=== PATIENT | male | born 1950 | race Caucasian/White ===

== ENCOUNTER 2019-04-03 08:09 | Outpatient (CLI) | payer OTHER ==
--- NOTE | 2019-04-03 08:26 | RAD ---
Exam: XR Knee Lt 4 View STANDARD HISTORY: Left knee pain. COMPARISON: None FINDINGS: Vascular calcifications are seen posterior to the knee. No acute fracture, dislocation, or other acute osseous abnormality is identified. IMPRESSION: No acute osseous abnormality is identified. Prominent vascular calcifications.
== END 2019-04-03 08:10 | disposition home or self-care (01) ==
LOC: RAD-FRANK 08:09
PROVIDERS: ATTEND Internal Medicine
DX: M25.562 Pain in left knee (principal); M25.862 Other specified joint disorders, left knee

== ENCOUNTER 2019-04-17 09:53 | Outpatient (CLI) | payer OTHER ==
--- NOTE | 2019-04-17 12:44 | MRI ---
MR OF THE LEFT KNEE WITHOUT CONTRAST INDICATION: Medial meniscal tear of the left knee TECHNIQUE: Axial and coronal PD fat sat, sagittal T2 fat sat, sagittal PD turbo spin echo and T1 rachael nal images were obtained of the left knee. COMPARISON: Left knee radiograph dated April 03, 2019 FINDINGS: Joint effusion: None. Semimembranosus-medial gastrocnemius popliteal cyst: Small sized semimembranosus-medial gastrocnemius Madison's cyst. There is fluid overlying the superficial fascia of the medial gastrocnemius. Ligaments: The ACL, PCL, MCL and LCLC are intact. Extensor mechanism: There is mild tendinosis of the proximal patellar tendon. Menisci: There is a horizontally oriented oblique tear involving the posterior horn and body of media l meniscus with a meniscal flap, extending from the inferior aspect of the medial meniscal body, being displaced into the inferior medial meniscal gutter on image 18 of series 8 measuring 5 mm in it s greatest craniocaudad dimension. There is partial extrusion of the medial meniscus. Small horizontally oriented tear is seen involving the body of the lateral meniscus. Articular cartilage: There are areas of focal full-thickness thinning involving the inferior aspect o f the medial patellar facet. One of the largest defect seen involving the lower medial patellar facet measuring 7.6 mm. There is a partial-thickness articular cartilage fissure involving the latera l patellar facet measuring 1.7 cm. There is moderate to severe diffuse chondral thinning involving the medial femorotibial joint compartment. There are small marginal osteophytes affecting all major c ompartments of the left knee. Osseous structures: Normal marrow signal. Popliteus and IT band: Normal. IMPRESSION: 1. Mild osteoarthrosis of the left knee. 2. Medial and lateral meniscal tears. 3. Partially ruptured Madison's cyst 4. Mild proximal patellar tendinosis.
== END 2019-04-17 09:54 | disposition home or self-care (01) ==
LOC: BICMRI 09:53
PROVIDERS: ATTEND Orthopaedic Surgery
DX: S83.242A Other tear of medial meniscus, current injury, left knee, initial encounter (principal); S83.282A Other tear of lateral meniscus, current injury, left knee, initial encounter; M17.12 Unilateral primary osteoarthritis, left knee; M66.0 Rupture of popliteal cyst; M67.864 Other specified disorders of tendon, left knee

== ENCOUNTER 2019-05-05 11:03 | Outpatient (CLI) | payer OTHER ==
[2019-05-05 12:39] LABS: #Eosinphils 0.2 thou/uL (0.0-0.7); #Lymphocytes 3.1 thou/uL (1.20-3.40); #Monocytes 0.5 thou/uL (0.11-0.59); #Neutrophils 3.1 thou/uL (1.40-6.50); %Basophils 0.7 % (0.0-1.0); %Eosinophils 2.6 % (0.0-10.0); %Lymphocytes 45.1 % (21.0-51.0); %Monocytes 7.1 % (0.0-10.0); %Neutrophils 44.5 % (42.0-75.0); Hemoglobin 14.5 g/dL (14.0-18.0); Mean Corpuscular HGB CONC 32.8 g/dL (32.0-36.0); Mean Corpuscular Hemoglobin 30.8 pg (27.0-31.0); Mean Corpuscular Volume 93.9 fL (78.0-98.0); Mean Platelet Volume 10.8 fL (7.4-10.4); Platelet Count 191 thou/uL (130-400); RBC Distribution Width 13.3 % (11.5-14.5); White Blood Cell (WBC) Count 6.9 thou/uL (4.8-10.8)
[2019-05-05 13:10] LABS: Anion Gap 14 mmol/L (10-20); BUN (Urea Nitrogen) 16 mg/dL (8.4-25.7); Calc. Creatinine Clearance 0 mL/min (70-130); Calcium 10.1 mg/dL (7.8-10.44); Carbon Dioxide 25 mmol/L (23-31); Chloride 105 mmol/L (98-107); Estimated GFR-MDRD 53; Glucose 158 mg/dL (80-115); Potassium 5.3 mmol/L (3.5-5.1); Sodium 139 mmol/L (136-145)
== END 2019-05-05 11:04 | disposition home or self-care (01) ==
LOC: LABBT 11:03
PROVIDERS: ATTEND Orthopaedic Surgery
DX: Z01.818 Encounter for other preprocedural examination (principal); S83.282A Other tear of lateral meniscus, current injury, left knee, initial encounter; S83.242A Other tear of medial meniscus, current injury, left knee, initial encounter
CPT/HCPCS: 80048; 85025; 93005; 93010

== ENCOUNTER 2019-05-09 07:56 | Day surgery (SDC) | payer OTHER ==
[2019-05-05 11:30] VITALS: BMI 29.8
[2019-05-09] MEDS ORDERED: PROPOFOL 20 ML ONE (10:10)
[2019-05-09] MEDS ORDERED: Fentanyl 100 MCG/2 ML VIAL ONE (10:57)
[2019-05-09] MEDS ORDERED: Lidocaine 2% w/Epinephrine 1:200K 20 ML VIAL ONE (11:23)
[2019-05-09] MEDS ORDERED: PROPOFOL 200 MG/20 ML VIAL ONE (11:23)
[2019-05-09] MEDS ORDERED: Dexamethasone 20 MG/5 ML VIAL ONE (11:23)
[2019-05-09] MEDS ORDERED: ePHEDrine/0.9% NaCl/PF SYRINGE 50 mg/10 ml ONE (11:23)
[2019-05-09] MEDS ORDERED: Bupivacaine HCl 0.5%/Epinephrine 1:200,000/PF 30 ml Vial ONE (11:23)
[2019-05-09] MEDS ORDERED: Ondansetron PF 4 MG/2 ML Vial ONE (11:23)
[2019-05-09] MEDS ORDERED: PHENYLEPHRINE-NS 100 MCG/ML 10 ML SYRINGE ONE ×2 (11:23)
[2019-05-09] MEDS ORDERED: Lidocaine 1% PF 5 ML VIAL ONE (11:23)
--- NOTE | 2019-05-09 14:10 | OP ---
DATE OF PROCEDURE: 05/09/2019 PREOPERATIVE DIAGNOSIS: Medial and lateral meniscus tear, left knee. POSTOPERATIVE DIAGNOSIS: Medial meniscus tear, left knee, intact lateral compartment. ANESTHESIA: General. ESTIMATED BLOOD LOSS: Minimal. SPECIMENS: None. DRAINS: None. COMPLICATIONS: None. FINDINGS OF SURGERY: Grade 3 chondromalacia of medial femoral condyle, tearing of almost the entire medial meniscus, posterior half, intact lateral compartment, intact patellofemoral joint. The scope was placed in the lateral portal, probe was placed in medial portal. I debrided the medial compartment with the shaver and then used a basket forceps to remove most of the posterior horn of the medial meniscus all the way up to the medial collateral ligament, which was visible at the time of the meniscectomy. We did have some areas of exposed bone in the medial femoral condyle, debrided these just gently with a shaver. The knee was irrigated and sterile dressings applied. Job ID: [id number]
== END 2019-05-09 15:45 | disposition home or self-care (01) ==
LOC: SDC 07:56
PROVIDERS: ATTEND Orthopaedic Surgery
PROC: 0SBD4ZZ Excision of Left Knee Joint, Percutaneous Endoscopic Approach (ICD-10-PCS; principal; 2019-05-09)
DX: S83.242A Other tear of medial meniscus, current injury, left knee, initial encounter (principal); M94.262 Chondromalacia, left knee; F17.200 Nicotine dependence, unspecified, uncomplicated; I10 Essential (primary) hypertension; E11.9 Type 2 diabetes mellitus without complications; E78.00 Pure hypercholesterolemia, unspecified; M19.90 Unspecified osteoarthritis, unspecified site; Z79.4 Long term (current) use of insulin; Z79.82 Long term (current) use of aspirin; Z79.899 Other long term (current) drug therapy; Z88.5 Allergy status to narcotic agent
CPT/HCPCS: 36416; J0131; J0670; J0690; J1100; J2001; J2405; J2704; J3010

== ENCOUNTER 2019-09-19 11:02 | Emergency (ER) | payer OTHER ==
[~2019-09-19 11:02] MED LIST: Iopamidol-370 76% 500 ML 1 ML ONE
[2019-09-19 12:14] LABS: #Basophils 0.1 thou/uL (0.0-0.2); #Eosinphils 0.1 thou/uL (0.0-0.7); #Monocytes 0.4 thou/uL (0.11-0.59); #Neutrophils 4.1 thou/uL (1.40-6.50); %Basophils 1.3 % (0.0-1.0); %Eosinophils 1.4 % (0.0-10.0); %Lymphocytes 38.5 % (21.0-51.0); %Monocytes 5.5 % (0.0-10.0); %Neutrophils 53.3 % (42.0-75.0); Mean Corpuscular HGB CONC 33.5 g/dL (32.0-36.0); Mean Corpuscular Hemoglobin 31.6 pg (27.0-31.0); Mean Corpuscular Volume 94.1 fL (78.0-98.0); Mean Platelet Volume 11.5 fL (7.4-10.4); Platelet Count 176 thou/uL (130-400); RBC Distribution Width 12.5 % (11.5-14.5); Red Blood Cell (RBC) Count 5.08 mill/uL (4.70-6.10); White Blood Cell (WBC) Count 7.8 thou/uL (4.8-10.8)
[2019-09-19 12:34] LABS: ALT (SGPT) 31 U/L (8-55); AST (SGOT) 24 U/L (5-34); Albumin 4.6 g/dL (3.4-4.8); Alkaline Phosphatase 63 U/L (40-110); Anion Gap 17 mmol/L (10-20); BUN (Urea Nitrogen) 21 mg/dL (8.4-25.7); Bilirubin, Total 0.6 mg/dL (0.2-1.2); Calc. Creatinine Clearance 0 mL/min (70-130); Calcium 10.1 mg/dL (7.8-10.44); Carbon Dioxide 19 mmol/L (23-31); Chloride 106 mmol/L (98-107); Estimated GFR-MDRD 45; Globulin 2.8 g/dL (2.4-3.5); Glucose 265 mg/dL (80-115); Lipase 19 U/L (8-78); Potassium 4.4 mmol/L (3.5-5.1); Protein, Total 7.4 g/dL (5.8-8.1); Sodium 138 mmol/L (136-145)
[2019-09-19 12:43] LABS: Bilirubin Negative (Negative); Blood, Urine Negative (Negative); Clarity Clear (Clear); Glucose, Urine (Dipstick) Greater than 1000 mg/dL (Negative); Leukocyte Negative Leu/uL (Negative); Nitrite Negative (Negative); Protein, Urine (Dipstick) Negative (Neg-Trace); Urobilinogen Normal mg/dL (Less than 2)
--- NOTE | 2019-09-19 14:44 | CT ---
CT ABDOMEN AND PELVIS WITH IV CONTRAST: Date: 09/19/2019 HISTORY: Abdominal pain. Rectal pain. Rectal bleeding. FINDINGS: There are mild dependent changes in the lung bases. The liver demonstrates decreased attenuation comp ared to the spleen consistent with fatty infiltration. The spleen, pancreas, and adrenal glands are n ormal. Bilateral renal cysts are present. No free air, free fluid, or lymphadenopathy is seen in the abdomen or pelvis. There are vascular calc ifications without evidence of aneurysmal dilatation of the abdominal aorta. The small bowel loops ar e not abnormally dilated. There is colonic diverticulosis without evidence of diverticulitis. There a re degenerative changes in the spine. There is a small, fat-containing left inguinal hernia. IMPRESSION: 1. Fatty liver. 2. Bilateral renal cysts. 3. Colonic diverticulosis without diverticulitis. POS: MZA
== END 2019-09-19 14:53 | disposition home or self-care (01) ==
LOC: ERS 11:02
DX: K59.00 Constipation, unspecified (principal); K92.1 Melena
CPT/HCPCS: 36415; 74177; 80053; 81003; 82274; 83690; 85025; Q9967

== ENCOUNTER 2019-10-03 15:12 | Observation (INO) | payer MEDICARE ==
--- NOTE | 2019-10-03 15:58 | RAD ---
PORTABLE CHEST: 10/03/19 PROVIDED CLINICAL HISTORY: Intermittent chest pain. FINDINGS: comparison 09/11/11. The cardiac and mediastinal silhouette is within normal limits. No focal consolidation, pleural flui d or pneumothorax apparent. IMPRESSION: No evidence for an acute cardiopulmonary process. POS: CHRIS
[2019-10-03 16:04] LABS: #Basophils 0.1 thou/uL (0.0-0.2); #Eosinphils 0.1 thou/uL (0.0-0.7); #Lymphocytes 3.6 thou/uL (1.20-3.40); #Monocytes 0.5 thou/uL (0.11-0.59); #Neutrophils 4.7 thou/uL (1.40-6.50); %Basophils 1.1 % (0.0-1.0); %Eosinophils 1.6 % (0.0-10.0); %Lymphocytes 39.6 % (21.0-51.0); %Neutrophils 52.8 % (42.0-75.0); Hemoglobin 14.8 g/dL (14.0-18.0); Mean Corpuscular HGB CONC 31.8 g/dL (32.0-36.0); Mean Corpuscular Hemoglobin 30.9 pg (27.0-31.0); Mean Corpuscular Volume 97.1 fL (78.0-98.0); Mean Platelet Volume 10.1 fL (7.4-10.4); Platelet Count 206 thou/uL (130-400); RBC Distribution Width 12.6 % (11.5-14.5); Red Blood Cell (RBC) Count 4.81 mill/uL (4.70-6.10)
[2019-10-03 16:29] LABS: ALT (SGPT) 15 U/L (8-55); AST (SGOT) 16 U/L (5-34); Albumin 4.3 g/dL (3.4-4.8); Alkaline Phosphatase 50 U/L (40-110); Anion Gap 16 mmol/L (10-20); BUN (Urea Nitrogen) 12 mg/dL (8.4-25.7); Bilirubin, Total Less than 0.2 mg/dL (0.2-1.2); Calc. Creatinine Clearance 0 mL/min (70-130); Calcium 9.4 mg/dL (7.8-10.44); Carbon Dioxide 20 mmol/L (23-31); Chloride 111 mmol/L (98-107); Estimated GFR-MDRD 51; Globulin 2.2 g/dL (2.4-3.5); Glucose 130 mg/dL (80-115); Lipase 24 U/L (8-78); Potassium 4.6 mmol/L (3.5-5.1); Protein, Total 6.5 g/dL (5.8-8.1); Sodium 142 mmol/L (136-145)
[2019-10-03] MEDS ORDERED: Aspirin Chewable 81 MG TAB ONE (18:14)
[2019-10-03 19:29] LABS: Troponin I Less than 0.010 ng/mL (< 0.028)
[2019-10-03] MEDS ORDERED: HYDROcodone/Acetaminophen 7.5/325 mg Tablet PO PRN ×2 (19:32)
[2019-10-03] MEDS ORDERED: Dextrose 50% Abboject 50 ML SYRINGE SLOW IVP PRN (19:52)
[2019-10-03] MEDS ORDERED: HumaLOG 300 UNITS/3 ML VIAL SC PRN (19:52)
[2019-10-03] MEDS ORDERED: Dextrose 5% in Water 1,000 ML IV PRN (19:52)
[2019-10-03] MEDS ORDERED: Melatonin 3 MG TAB PO PRN (20:02)
--- NOTE | 2019-10-03 21:08 | HP ---
PRIMARY CARE PHYSICIAN: [facility] in [place]. He is a former Dr. Vaughan's patient. CHIEF COMPLAINT: Chest pain. HISTORY OF PRESENT ILLNESS: Mr. Romo is a 68-year-old male who reported to the emergency room today after he started having chest pain around lunch today, reports that it was substernal. Denies any radiation, but did say it made him nauseated. He had tingling down his left arm and a little shortness of breath. He does have a past medical history pertinent for diabetes, hypertension, hyperlipidemia, coronary artery disease post 1 stent in 2018 in [place]. He reports that he still takes Plavix every day for the stent. He reports that he is compliant with his medication and has had no changes of his heart medicine. Reports that his PCP, who he saw at [facility] after Dr. Vaughan left, put him on some new diabetes medication, Jardiance, but he had some side effects to it and he stopped taking it. He denies having similar symptoms in the past. He denies any fever, any worsening cough. He reports that he does have a kind of a chronic cough from smoking. In the emergency room, he had no EKG changes, first troponin was undetectable. Based on his history and his presentation, he will be admitted to the observation unit for further management and workup. REVIEW OF SYSTEMS: Reports chest pain. Reports cough. Reports shortness of breath. Denies any palpitations. Reports some nausea. Denies any abdominal pain. Reports constipation. Reports hemorrhoid pain. He denies any diarrhea. He denies any fever or any chills. All other systems are reviewed and are negative unless mentioned above or in the HPI. PAST MEDICAL HISTORY: Diabetes, hypertension, insomnia, hyperlipidemia, seasonal allergies, peripheral neuropathy. SURGICAL HISTORY: Had a stent, appendectomy, knee surgery, 2 inguinal hernia repairs. PSYCHIATRIC HISTORY: None. SOCIAL HISTORY: Denies any alcohol use. Denies drug use. Uses tobacco. Reports that he smokes a pack for the last 50 years. FAMILY HISTORY: Reports that his father from a stroke after AAA surgery. Mom, history of hypertension. KNOWN ALLERGIES: To Demerol. CURRENT MEDICATIONS: Per the ER, this list will need to be verified and reconciled. 1. Amlodipine 10 mg p.o. once a day. 2. Plavix 75 mg p.o. once a day. 3. Flexeril 10 mg p.o. once a day. 4. Fenofibrate 150 mg p.o. once a day. 5. Gabapentin 300 mg p.o. once a day at bedtime. 6. Jardiance 10 mg p.o. once a day, which he states he stopped taking. 7. Lantus 65 units subcu once a day at bedtime. 8. Lisinopril 20 mg p.o. once a day. 9. Metoprolol 25 mg p.o. once a day. 10. Metformin 850 mg 3 times a day. 11. Nitroglycerin 0.4 mg sublingual as needed. 12. Rosuvastatin 20 mg p.o. once a day in the morning. 13. Topiramate 50 mg p.o. b.i.d. 14. Tramadol 50 mg p.o. b.i.d. 15. Pepcid 20 mg p.o. once a day. 16. Melatonin 10 mg 2 tabs as needed. 17. Zyrtec 10 mg p.o. once a day. 18. Robitussin 15 mL as needed. 19. Aspirin 81 mg p.o. once a day. 20. Anusol HC topical 4 times a day. 21. Magnesium citrate solution p.r.n. PHYSICAL EXAMINATION: VITAL SIGNS: Blood pressure 114/70, pulse is 78, respirations are 15, pO2 sats are 100% on room air. CONSTITUTIONAL: The patient was eating supper when I took his history and did the physical exam. He is in no apparent distress. HEAD: Atraumatic and normocephalic. EYES: Eyelids are normal to inspection. Pupils are equally round and reactive to light. ENT: Mouth exam is normal. Mucous membranes are moist. NECK: Normal range of motion. Trachea is midline. RESPIRATORY/CHEST: Chest movement is symmetrical. Breath sounds are clear. CARDIOVASCULAR: Regular heart rate and rhythm. Heart sounds are normal. ABDOMEN: Nontender. Bowel sounds are heard. BACK: Normal range of motion. No tenderness. EXTREMITIES: Upper extremity; normal inspection, normal range of motion. Radial pulses are normal. Lower extremity; normal range of motion. Motor strength is normal. Pedal pulses are normal. There is no edema noted. NEURO: He is oriented to person, place, and time. Speech is normal. PSYCH: He has a normal affect. He is alert and oriented to person, place, and time. LABORATORY DATA: Sodium 142, potassium 4.6, chloride 111, carbon dioxide 20, gap is 16, BUN is 12, creatinine is 1.39, glucose 130, calcium of 9.4. Total bilirubin is less than 0.2. Liver enzymes are unremarkable. Troponin is undetectable. White blood cell count is 9, hemoglobin 14.8, hematocrit is 46.6, and platelet count is 206. EKG by the emergency room shows normal sinus rhythm, conduction, with first-degree AV block, ST segments are normal, and T-waves are normal. PLAN/ASSESSMENT: 1. Chest pain with a history of coronary artery disease, had 1 stent placed. Also history of hypertension, diabetes, and hyperlipidemia. We will admit the patient, trend troponins, order a stress test in a.m. Aspirin 81 mg p.o. daily. Continue the Plavix for the stent once reconciled. 2. History of hypertension. We will continue home medications. 3. History of hyperlipidemia. We will test for fasting lipids in a.m. and adjust medications as needed. 4. Diabetes type 2. The patient was put on Januvia by his PCP, but he has taken himself off. We will check an A1c, add sliding scale as needed for coverage with Accu-Cheks a.c. and at bedtime. 5. History of hemorrhoids, constipation. We will order the Senokot S p.o. b.i.d., scheduled as needed for now, and then Proctofoam t.i.d. as needed. The patient has an appointment with Dr. Seymour on October 26. His hemoglobin and hematocrit appear stable. 6. Tobacco. He will need cessation counseling. 7. Deep venous thrombosis and gastrointestinal prophylaxis started. 8. Chronic kidney disease, creatinine of 1.34. This appears stable since April 2019. 9. Hospital course is dependent on clinical findings. Job ID: [id number]
[2019-10-03] MEDS: Senokot S 8.6-50 MG TAB PO SCH (21:43)
[2019-10-03] MEDS: Famotidine 20 MG TAB PO SCH (21:43)
[2019-10-03] MEDS: Hydrocortisone/Pramoxine (Proctofoam HC) 10 GM BOX PR SCH (21:43)
[2019-10-03 22:30] LABS: Troponin I Less than 0.010 ng/mL (< 0.028)
[2019-10-04 00:08] VITALS: BMI 25.5
[2019-10-04] MEDS ORDERED: Guaifenesin DM 100-10/5 ML UDCUP PO PRN (00:55)
[2019-10-04] MEDS ORDERED: Melatonin 3 MG TAB PO PRN (00:55)
[2019-10-04 04:54] LABS: #Basophils 0.1 thou/uL (0.0-0.2); #Eosinphils 0.2 thou/uL (0.0-0.7); #Lymphocytes 3.2 thou/uL (1.20-3.40); #Monocytes 0.4 thou/uL (0.11-0.59); #Neutrophils 2.9 thou/uL (1.40-6.50); %Basophils 1.4 % (0.0-1.0); %Eosinophils 2.3 % (0.0-10.0); %Lymphocytes 47.4 % (21.0-51.0); %Monocytes 6.4 % (0.0-10.0); %Neutrophils 42.6 % (42.0-75.0); Hemoglobin 14.3 g/dL (14.0-18.0); Mean Corpuscular HGB CONC 32.1 g/dL (32.0-36.0); Mean Corpuscular Hemoglobin 31.3 pg (27.0-31.0); Mean Corpuscular Volume 97.5 fL (78.0-98.0); Mean Platelet Volume 10.3 fL (7.4-10.4); Platelet Count 179 thou/uL (130-400); RBC Distribution Width 12.6 % (11.5-14.5); Red Blood Cell (RBC) Count 4.57 mill/uL (4.70-6.10); White Blood Cell (WBC) Count 6.8 thou/uL (4.8-10.8)
[2019-10-04 05:03] LABS: Hemoglobin A1c 8.2 % (4.0-6.0)
[2019-10-04 05:15] LABS: Anion Gap 12 mmol/L (10-20); BUN (Urea Nitrogen) 10 mg/dL (8.4-25.7); Calc. Creatinine Clearance 74 mL/min (70-130); Calcium 9.4 mg/dL (7.8-10.44); Carbon Dioxide 21 mmol/L (23-31); Cardiac Risk 4.4 (Less than 4.5); Chloride 112 mmol/L (98-107); Cholesterol 148 mg/dl (< 200 Desired); Estimated GFR-MDRD 65; Glucose 135 mg/dL (80-115); HDL Cholesterol 34 mg/dL (>60 Neg Risk); LDL Cholesterol, Calculated 73 mg/dL; Magnesium 1.9 mg/dL (1.6-2.6); Potassium 4.1 mmol/L (3.5-5.1); Sodium 141 mmol/L (136-145); Triglycerides 204 mg/dL (Less than 150)
[2019-10-04] MEDS ORDERED: ADENOSINE 60 MG/20 ML VIAL ONE (08:50)
[2019-10-04] MEDS: Acetaminophen 325 MG TAB PO PRN (10:00)
[2019-10-04] MEDS: HumaLOG 300 UNITS/3 ML VIAL SC PRN ×2 (11:34→17:29)
[2019-10-04] MEDS: Aspirin 81 mg Enteric Coated Tablet PO SCH (11:49)
[2019-10-04] MEDS: Enoxaparin Sodium 40 MG/0.4 ML SYRINGE SC SCH (11:50)
[2019-10-04] MEDS: Famotidine 20 MG TAB PO SCH ×2 (11:50→20:43)
[2019-10-04] MEDS: Clopidogrel Bisulfate 75 MG TAB PO SCH (11:50)
[2019-10-04] MEDS: Fenofibrate Nanocrystallized 145 MG TAB PO SCH (11:51)
[2019-10-04] MEDS: Senokot S 8.6-50 MG TAB PO SCH ×2 (11:51→20:43)
[2019-10-04] MEDS: Rosuvastatin 20 MG TAB PO SCH (11:51)
[2019-10-04] MEDS: Hydrocortisone/Pramoxine (Proctofoam HC) 10 GM BOX PR SCH ×3 (11:51→20:42)
[2019-10-04] MEDS: Topiramate 25 MG TAB PO SCH ×2 (11:52→20:43)
[2019-10-04] MEDS: Amlodipine 10 MG TAB PO SCH (11:58)
[2019-10-04] MEDS: Lisinopril 20 MG TAB PO SCH (11:59)
[2019-10-04] MEDS: Metoprolol Tartrate 25 MG TAB PO SCH (11:59)
--- NOTE | 2019-10-04 12:13 | NM ---
EXAM: NM Cardiac Stress W EF WF PROVIDED CLINICAL HISTORY: Chest pain COMPARISON: None RADIOPHARMACEUTICAL: 29.1 millicuries technetium 99m labeled sestamibi IV stress 9.4 millicuries technetium 99m labeled sestamibi IV rest FINDINGS: There is normal, homogeneous distribution of radiotracer throughout the left ventricular myocardium. Gated data demonstrate normal myocardial wall motion and thickening with calculated LVEF 58%. Calculated TID is 1.2. IMPRESSION: 1. No scintigraphic evidence for ischemia. 2. Calculated LVEF 58%.
--- NOTE | 2019-10-04 13:26 | PDOC.HOSPP ---
- Subjective Encounter Date: 10/04/19 Encounter Time: 12:30 Subjective: Patient seen and examined at this time. Chest pain is at a level of 1 out of 10. No other complaints and no overnight events. - Objective Vital Signs & Weight: Vital Signs (12 hours) Temp Pulse Resp BP BP Pulse Ox 10/04/19 11:37 97.5 F L 74 16 115/60 99 10/04/19 07:35 98.2 F 77 16 102/60 99 10/04/19 05:52 106/62 10/04/19 04:00 97.8 F 73 16 92/53 L 98 Weight Weight 183 lb 3.2 oz I&O: 10/03/19 10/04/19 10/05/19 06:59 06:59 06:59 Intake Total 50 Output Total 460 Balance -410 Result Diagrams: 10/04/19 04:09 10/04/19 04:09 Additional Labs: Accuchecks 10/04/19 10/04/19 10/03/19 11:37 05:55 21:54 POC Glucose 206 H 120 H 220 H EKG Reviewed by me: Yes Hospitalist ROS - Review of Systems Cardiovascular: reports: chest pain (06/06) - Medication Medications: Active Medications Generic Name Dose Route Start Last Admin Trade Name Freq PRN Reason Stop Dose Admin Acetaminophen 650 mg 10/03/19 19:32 10/04/19 10:00 Tylenol PO 650 mg Q4H PRN Administration Headache/Fever/Mild Pain (1-3) Amlodipine Besylate 10 mg 10/04/19 09:00 10/04/19 11:58 Norvasc PO Not Given DAILY [facility] Aspirin 81 mg 10/04/19 09:00 10/04/19 11:49 Ecotrin PO 81 mg DAILY JUAN DAVID Administration Clopidogrel Bisulfate 75 mg 10/04/19 09:00 10/04/19 11:50 Plavix PO 75 mg DAILY JUAN DAVID Administration Enoxaparin Sodium 40 mg 10/04/19 09:00 10/04/19 11:50 Lovenox SC 40 mg 899 JUAN DAVID Administration Famotidine 20 mg 10/03/19 21:00 10/04/19 11:50 Pepcid PO 20 mg BID JUAN DAVID Administration Fenofibrate 145 mg 10/04/19 09:00 10/04/19 11:51 Tricor PO 145 mg DAILY JUAN DAVID Administration Hydrocortisone/Pramoxine 1 gm 10/03/19 21:00 10/04/19 11:51 Proctofoam Hc [place] 1 applic TID JUAN DAVID Administration Insulin Human Lispro 0 units 10/03/19 19:52 10/04/19 11:34 Humalog SC 4 unit .MODERATE SLIDING SC PRN Administration Moderate Correctional Scale Insulin Human Lispro 0 units 10/03/19 19:52 10/03/19 21:59 Humalog SC 2 unit .BEDTIME SLIDING SC PRN Administration Bedtime Correctional Scale Lisinopril 20 mg 10/04/19 09:00 10/04/19 11:59 Zestril PO 20 mg DAILY JUAN DAVID Administration Metoprolol Tartrate 25 mg 10/04/19 09:00 10/04/19 11:59 Lopressor PO 25 mg DAILY JUAN DAVID Administration Rosuvastatin Calcium 20 mg 10/04/19 09:00 10/04/19 11:51 Crestor PO 20 mg DAILY JUAN DAVID Administration Senna/Docusate Sodium 2 tab 10/03/19 21:00 10/04/19 11:51 Senokot S PO 2 tab BID JUAN DAVID Administration Topiramate 50 mg 10/04/19 09:00 10/04/19 11:52 Topamax PO 50 mg BID JUAN DAVID Administration - Exam General Appearance: NAD, awake alert Eye: PERRL Neck: supple, symmetric, no JVD Heart: RRR, no murmur, no gallops, no rubs, normal peripheral pulses Respiratory: CTAB, no wheezes, no rales, no ronchi Gastrointestinal: soft, non-tender, non-distended, normal bowel sounds Extremities: no cyanosis, no edema Neurological: no focal deficits Psychiatric: normal affect, normal behavior Hosp A/P (1) Chest pain Code(s): R07.9 - CHEST PAIN, UNSPECIFIED Status: Acute (2) HTN (hypertension) Code(s): I10 - ESSENTIAL (PRIMARY) HYPERTENSION Status: Chronic Qualifiers: Hypertension type: essential hypertension Qualified Code(s): I10 - Essential (primary) hypertension (3) Hyperlipidemia Code(s): E78.5 - HYPERLIPIDEMIA, UNSPECIFIED Status: Chronic (4) Diabetes mellitus, type 2 Status: Chronic (5) Chronic kidney disease Code(s): N18.9 - CHRONIC KIDNEY DISEASE, UNSPECIFIED Status: Chronic Qualifiers: Chronic kidney disease stage: stage 2 (mild) Qualified Code(s): N18.2 - Chronic kidney disease, stage 2 (mild) - Plan 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
--- NOTE | 2019-10-04 17:37 | PDOC.HOSPP ---
- Subjective Encounter Date: 10/04/19 Encounter Time: 17:36 Subjective: Mr. Romo was seen today in follow-up. He says he feel better today. He denies chest pain. He tells me however that the pain he experienced yesterday was very similar to when he had to have his STENT placed last year. This time however it was worse. He also says he had 2 other " arteries that they were keeping a close eye on". - Objective Vital Signs & Weight: Vital Signs (12 hours) Temp Pulse Resp BP BP Pulse Ox 10/04/19 15:57 97.8 F 68 16 121/66 99 10/04/19 11:37 97.5 F L 74 16 115/60 99 10/04/19 07:35 98.2 F 77 16 102/60 99 10/04/19 05:52 106/62 Weight Weight 183 lb 3.2 oz I&O: 10/03/19 10/04/19 10/05/19 06:59 06:59 06:59 Intake Total 50 780 Output Total 460 475 Balance -410 305 Result Diagrams: 10/04/19 04:09 10/04/19 04:09 Additional Labs: Accuchecks 10/04/19 10/04/19 10/04/19 17:05 11:37 05:55 POC Glucose 218 H 206 H 120 H 10/03/19 21:54 POC Glucose 220 H Hospitalist ROS - Medication Medications: Active Medications Generic Name Dose Route Start Last Admin Trade Name Freq PRN Reason Stop Dose Admin Acetaminophen 650 mg 10/03/19 19:32 10/04/19 10:00 Tylenol PO 650 mg Q4H PRN Administration Headache/Fever/Mild Pain (1-3) Amlodipine Besylate 10 mg 10/04/19 09:00 10/04/19 11:58 Norvasc PO Not Given DAILY JUAN DAVID Aspirin 81 mg 10/04/19 09:00 10/04/19 11:49 Ecotrin PO 81 mg DAILY JUAN DAVID Administration Clopidogrel Bisulfate 75 mg 10/04/19 09:00 10/04/19 11:50 Plavix PO 75 mg DAILY JUAN DAVID Administration Enoxaparin Sodium 40 mg 10/04/19 09:00 10/04/19 11:50 Lovenox SC 40 mg 899 JUAN DAVID Administration Famotidine 20 mg 10/03/19 21:00 10/04/19 11:50 Pepcid PO 20 mg BID JUAN DAVID Administration Fenofibrate 145 mg 10/04/19 09:00 10/04/19 11:51 Tricor PO 145 mg DAILY JUAN DAVID Administration Hydrocortisone/Pramoxine 1 gm 10/03/19 21:00 10/04/19 15:54 Proctofoam Hc [place] 1 applic TID JUAN DAVID Administration Insulin Human Lispro 0 units 10/03/19 19:52 10/04/19 17:29 Humalog SC 4 unit .MODERATE SLIDING SC PRN Administration Moderate Correctional Scale Insulin Human Lispro 0 units 10/03/19 19:52 10/03/19 21:59 Humalog SC 2 unit .BEDTIME SLIDING SC PRN Administration Bedtime Correctional Scale Lisinopril 20 mg 10/04/19 09:00 10/04/19 11:59 Zestril PO 20 mg DAILY JUAN DAVID Administration Metoprolol Tartrate 25 mg 10/04/19 09:00 10/04/19 11:59 Lopressor PO 25 mg DAILY JUAN DAVID Administration Rosuvastatin Calcium 20 mg 10/04/19 09:00 10/04/19 11:51 Crestor PO 20 mg DAILY JUAN DAVID Administration Senna/Docusate Sodium 2 tab 10/03/19 21:00 10/04/19 11:51 Senokot S PO 2 tab BID JUAN DAVID Administration Topiramate 50 mg 10/04/19 09:00 10/04/19 11:52 Topamax PO 50 mg BID JUAN DAVID Administration - Exam Eye: PERRL Heart: RRR, no murmur, no gallops, no rubs, normal peripheral pulses Respiratory: CTAB, no wheezes, no rales, no ronchi, normal chest expansion, no tachypnea Gastrointestinal: soft, non-tender, non-distended, normal bowel sounds, no palpable masses, no hepatomegaly Extremities: no cyanosis, no clubbing, no edema Hosp A/P (1) Chest pain Code(s): R07.9 - CHEST PAIN, UNSPECIFIED Status: Acute (2) HTN (hypertension) Code(s): I10 - ESSENTIAL (PRIMARY) HYPERTENSION Status: Chronic Qualifiers: Hypertension type: essential hypertension Qualified Code(s): I10 - Essential (primary) hypertension (3) Chronic kidney disease Code(s): N18.9 - CHRONIC KIDNEY DISEASE, UNSPECIFIED Status: Chronic Qualifiers: Chronic kidney disease stage: stage 2 (mild) Qualified Code(s): N18.2 - Chronic kidney disease, stage 2 (mild) (4) Diabetes mellitus, type 2 Status: Chronic (5) Hyperlipidemia Code(s): E78.5 - HYPERLIPIDEMIA, UNSPECIFIED Status: Chronic - Plan * Chest pain- stress test results noted. His TID is borderline, and his description of the pain was similar to when he had his STENT placed- will proceed with Cardiology consult * HTN- blood pressure is stable * DM- blood glucose is a bit elevated- continue insulin and SSI * Dyslipidemia - LDL is essentially at goal- continue Crestor
[2019-10-04] MEDS: Cyclobenzaprine 10 MG TAB PO SCH (20:43)
[2019-10-04] MEDS: Insulin Glargine 65 UNITS in Pre-Filled Syringe 1 EACH SC SCH (20:44)
[2019-10-04] MEDS ORDERED: Non-Formulary Item 1 EACH (Insulin Glargine,Hum.Rec.Anlog [Lantus Solostar] 65 UNIT) SC SCH (21:00)
[2019-10-05] MEDS: Acetaminophen 325 MG TAB PO PRN ×2 (08:34→20:27)
[2019-10-05] MEDS: Topiramate 25 MG TAB PO SCH ×2 (08:35→20:25)
[2019-10-05] MEDS: Fenofibrate Nanocrystallized 145 MG TAB PO SCH (08:37)
[2019-10-05] MEDS: Famotidine 20 MG TAB PO SCH ×2 (08:37→20:25)
[2019-10-05] MEDS: Aspirin 81 mg Enteric Coated Tablet PO SCH (08:37)
[2019-10-05] MEDS: Lisinopril 20 MG TAB PO SCH (08:38)
[2019-10-05] MEDS: Metoprolol Tartrate 25 MG TAB PO SCH (08:38)
[2019-10-05] MEDS: Senokot S 8.6-50 MG TAB PO SCH ×2 (08:38→20:25)
[2019-10-05] MEDS: Enoxaparin Sodium 40 MG/0.4 ML SYRINGE SC SCH (08:39)
[2019-10-05] MEDS: Rosuvastatin 20 MG TAB PO SCH (08:39)
[2019-10-05] MEDS: Clopidogrel Bisulfate 75 MG TAB PO SCH (08:39)
[2019-10-05] MEDS: Amlodipine 10 MG TAB PO SCH (08:39)
[2019-10-05] MEDS: Hydrocortisone/Pramoxine (Proctofoam HC) 10 GM BOX PR SCH ×3 (08:40→20:29)
--- NOTE | 2019-10-05 09:20 | PDOC.HOSPP ---
- Subjective Encounter Date: 10/05/19 Encounter Time: 08:45 Subjective: Patient seen and examined at this time. States he is feeling really good and understood his plan of care regarding having cardiology see him. Denies chest pain or shortness of breath. - Objective Vital Signs & Weight: Vital Signs (12 hours) Temp Pulse Resp BP BP Pulse Ox 10/05/19 08:33 97.6 F 80 16 109/63 100 10/05/19 05:00 99 F 71 16 98/60 95 Weight Weight 183 lb 3.2 oz I&O: 10/04/19 10/05/19 10/06/19 06:59 06:59 06:59 Intake Total 50 1080 Output Total 460 750 Balance -410 330 Result Diagrams: 10/04/19 04:09 10/04/19 04:09 Additional Labs: Accuchecks 10/05/19 10/04/19 10/04/19 05:40 20:27 17:05 POC Glucose 153 H 245 H 218 H 10/04/19 11:37 POC Glucose 206 H EKG Reviewed by me: Yes Hospitalist ROS - Medication Medications: Active Medications Generic Name Dose Route Start Last Admin Trade Name Freq PRN Reason Stop Dose Admin Acetaminophen 650 mg 10/03/19 19:32 10/05/19 08:34 Tylenol PO 650 mg Q4H PRN Administration Headache/Fever/Mild Pain (1-3) Amlodipine Besylate 10 mg 10/04/19 09:00 10/05/19 08:39 Norvasc PO 10 mg DAILY JUAN DAVID Administration Aspirin 81 mg 10/04/19 09:00 10/05/19 08:37 Ecotrin PO 81 mg DAILY JUAN DAVID Administration Clopidogrel Bisulfate 75 mg 10/04/19 09:00 10/05/19 08:39 Plavix PO 75 mg DAILY JUAN DAVID Administration Cyclobenzaprine HCl 10 mg 10/04/19 21:00 10/04/19 20:43 Flexeril PO 10 mg HS JUAN DAVID Administration Enoxaparin Sodium 40 mg 10/04/19 09:00 10/05/19 08:39 Lovenox SC 40 mg 0900 JUAN DAVID Administration Famotidine 20 mg 10/03/19 21:00 10/05/19 08:37 Pepcid PO 20 mg BID JUAN DAVID Administration Fenofibrate 145 mg 10/04/19 09:00 05/10/20 08:37 Tricor PO 145 mg DAILY JUAN DAVID Administration Hydrocortisone/Pramoxine 1 gm 10/03/19 21:00 10/05/19 08:40 Proctofoam Hc [place] 1 applic TID JUAN DAVID Administration Insulin Glargine 65 units/ 0.65 mls @ 0 mls/hr 10/04/19 21:00 10/04/19 20:44 Miscellaneous Medication SC 0.65 mls HS JUAN DAVID Administration Insulin Human Lispro 0 units 10/03/19 19:52 10/04/19 17:29 Humalog SC 4 unit .MODERATE SLIDING SC PRN Administration Moderate Correctional Scale Insulin Human Lispro 0 units 10/03/19 19:52 10/03/19 21:59 Humalog SC 2 unit .BEDTIME SLIDING SC PRN Administration Bedtime Correctional Scale Lisinopril 20 mg 10/04/19 09:00 10/05/19 08:38 Zestril PO 20 mg DAILY JUAN DAVID Administration Metoprolol Tartrate 25 mg 10/04/19 09:00 10/05/19 08:38 Lopressor PO 25 mg DAILY JUAN DAVID Administration Rosuvastatin Calcium 20 mg 10/04/19 09:00 10/05/19 08:39 Crestor PO 20 mg DAILY JUAN DAVID Administration Senna/Docusate Sodium 2 tab 10/03/19 21:00 10/05/19 08:38 Senokot S PO 2 tab BID JUAN DAVID Administration Topiramate 50 mg 10/04/19 09:00 10/05/19 08:35 Topamax PO 50 mg BID JUAN DAVID Administration - Exam General Appearance: NAD, awake alert Neck: supple, symmetric, no JVD, no lymphadenopathy Heart: RRR, no murmur, no gallops, no rubs, normal peripheral pulses Respiratory: CTAB, no wheezes, no rales, no ronchi Gastrointestinal: soft, non-tender, non-distended, normal bowel sounds Extremities: no cyanosis, no clubbing Neurological: no focal deficits Psychiatric: normal affect, normal behavior Hosp A/P (1) Chest pain Code(s): R07.9 - CHEST PAIN, UNSPECIFIED Status: Acute (2) HTN (hypertension) Code(s): I10 - ESSENTIAL (PRIMARY) HYPERTENSION Status: Chronic Qualifiers: Hypertension type: essential hypertension Qualified Code(s): I10 - Essential (primary) hypertension (3) Hyperlipidemia Code(s): E78.5 - HYPERLIPIDEMIA, UNSPECIFIED Status: Chronic (4) Diabetes mellitus, type 2 Status: Chronic (5) Chronic kidney disease Code(s): N18.9 - CHRONIC KIDNEY DISEASE, UNSPECIFIED Status: Chronic Qualifiers: Chronic kidney disease stage: stage 2 (mild) Qualified Code(s): N18.2 - Chronic kidney disease, stage 2 (mild) - Plan Continue to monitor on telemetry Await cardiology consult HTN: BP has been stable DM II: continue to monitor blood sugar levels and correct with SSI Dyslipidemia: continue Crestor
[2019-10-05] MEDS ORDERED: Communication Order-Pharmacy FS SCH (11:45)
[2019-10-05] MEDS: HumaLOG 300 UNITS/3 ML VIAL SC PRN ×2 (11:53→18:04)
[2019-10-05] MEDS ORDERED: Polyethylene Glycol 3350 17 GM Packet PO PRN (17:44)
[2019-10-05] MEDS ORDERED: Mineral Oil PER 1 ML PO PRN (17:45)
--- NOTE | 2019-10-05 17:58 | PDOC.EVN ---
Event Note - Event Note Event Note: Mr. Romo was seen today in follow-up of chest pain. His medical case was discussed with Miranda TURNER, and agree with the assessment and plan. He is feeling better no complaints. His exam is unchanged. Plan is for cardiac cath tomorrow.
--- NOTE | 2019-10-05 18:34 | CON ---
DATE OF CONSULTATION: 10/05/2019 REASON FOR CONSULTATION: Chest pressure at rest and coronary artery disease. HISTORY OF PRESENT ILLNESS: Mr. Romo is a pleasant 69-year-old gentleman with history of coronary artery disease and peripheral vascular disease. He has a previous history of stent implantation. He was doing well until Sunday, at rest started having episode of pressure in his chest, went all the way across his chest and up in the left side of his neck, ultimately came here to the emergency room when the pain was relieved. The patient had nitroglycerin at home, but did not know where it was, therefore he is unable to take at home. The patient is resting comfortably now. The patient states he had heart catheterization done in the past, had a stent placed in his right coronary artery. He said there was some "other blockages, but they were patent enough to place a stent." The patient otherwise had been doing well up until this time. MEDICATIONS: Please see nurse's notes. He was on aspirin and Plavix as well as statin therapy. PAST MEDICAL HISTORY: Diabetes, continued to smoke unfortunately. REVIEW OF SYSTEMS: CONSTITUTIONAL: No significant weight gain or loss. VISION: No changes. HEARING: No changes. PULMONARY: No cough or wheezing. GASTROINTESTINAL: No nausea, vomiting or diarrhea. SKIN: No rashes. NEUROLOGIC: No unilateral weakness or numbness. PSYCHIATRIC: No unusual depression or anxiety. FAMILY HISTORY: Noncontributory. PHYSICAL EXAMINATION: VITAL SIGNS: Blood pressure 109/63, pulse 80 and it is regular. NECK: Veins normal. Carotid, normal upstrokes. No bruits. LUNGS: Clear. No wheezing. CARDIAC: Normal S1, normal S2. There is no murmur, rub or gallop. ABDOMEN: Soft and nontender. EXTREMITIES: Warm and dry. No clubbing. No cyanosis. There is no edema. PERIPHERAL PULSES: The right femoral pulse is diminished. I do not feel popliteal pulse on the right. I do not feel pedal pulses on the right. On the left side, femoral pulse appears easily palpable. Popliteal easily palpable. I do not feel pedal pulses on the left. The patient does have bilateral hip claudication and bilateral calf claudication at relatively low level of activity. Cardiac enzymes were negative. Troponin was negative. Stress test did not reveal ischemia. ASSESSMENT: 1. Status post stent implantation in the right coronary artery, 4.0 x 12 mm drug-coated stent was placed, apparently that was 2019. 2. Diabetes. 3. Tobacco dependence. 4. Peripheral vascular disease, symptomatic. The patient had a long episode of chest pressure at rest. The patient lives quite a bit away from the hospital in [place] some traveling, he will be in [place], [place] soon. Discussed continued observation with medical therapy versus cardiac catheterization. The patient wishes to have cardiac catheterization done. He understands risk of stroke, heart attack, iodine allergy, loss of blood supply to leg or kidney, stent thrombosis, stent restenosis. He understands and wishes to proceed. May need to consider outpatient evaluation of his peripheral vascular disease, may be able to benefit from stenting, appears to have iliac disease. Strongly advised smoking cessation. Job ID: [id number]
[2019-10-05] MEDS: Insulin Glargine 65 UNITS in Pre-Filled Syringe 1 EACH SC SCH (20:24)
[2019-10-05] MEDS: Cyclobenzaprine 10 MG TAB PO SCH (20:24)
[2019-10-06] MEDS: Topiramate 25 MG TAB PO SCH (05:40)
[2019-10-06] MEDS: Clopidogrel Bisulfate 75 MG TAB PO SCH (05:41)
[2019-10-06] MEDS: Aspirin 81 mg Enteric Coated Tablet PO SCH (05:41)
[2019-10-06] MEDS: Rosuvastatin 20 MG TAB PO SCH (05:41)
[2019-10-06] MEDS: Famotidine 20 MG TAB PO SCH (05:43)
[2019-10-06] MEDS: Amlodipine 10 MG TAB PO SCH (05:43)
[2019-10-06] MEDS: Fenofibrate Nanocrystallized 145 MG TAB PO SCH (05:44)
[2019-10-06] MEDS: Metoprolol Tartrate 25 MG TAB PO SCH (05:46)
[2019-10-06] MEDS: Lisinopril 20 MG TAB PO SCH (05:48)
[2019-10-06] MEDS: Hydrocortisone/Pramoxine (Proctofoam HC) 10 GM BOX PR SCH (05:49)
[2019-10-06] MEDS ORDERED: Sodium Chloride 0.9% 1,000 ML IV SCH (06:00)
[2019-10-06] MEDS: Acetaminophen 325 MG TAB PO PRN (06:54)
[2019-10-06] MEDS: Senokot S 8.6-50 MG TAB PO SCH (07:25)
[2019-10-06] MEDS ORDERED: Fentanyl 100 MCG/2 ML VIAL ONE (08:21)
[2019-10-06] MEDS ORDERED: Iopamidol 370 76% 100 ML VIAL ONE (09:11)
[2019-10-06] MEDS ORDERED: Nitroglycerin 0.4 MG TAB (25 Tab Bottle) SL PRN (09:47)
[2019-10-06] MEDS ORDERED: Sodium Chloride 0.9% 200 ML IV PRN (09:47)
[2019-10-06] MEDS ORDERED: Acetaminophen/Codeine 30-300mg Tablet PO PRN (09:47)
[2019-10-06 11:35] VITALS: BP 109/62; TEMP 98.2
--- NOTE | 2019-10-07 11:17 | DIS ---
DATE OF ADMISSION: 10/03/2019 DATE OF DISCHARGE: 10/06/2019 DISCHARGE DISPOSITION AND FOLLOWUP: The patient was discharged home with . The patient was seen and examined on the day of discharge. Denies any new complaints. To follow up in [facility] within [address] Garg with Cardiology in 3 to 4 weeks. INPATIENT CONSULTS: Cardiology. CLINICAL COURSE: The patient is a 69-year-old male who reported to the ER today after having chest pain that started after lunch, which was substernal. He denied any radiation at the time, but did state that it made him nauseated. Pertinent past medical history of diabetes; hypertension; hyperlipidemia; and coronary artery disease post one stent in 2018, which he is still taking Plavix for. He was monitored on telemetry while in hospital. Three serial troponins were all negative. Stress test was performed, which showed no evidence for ischemia; however, his calculated TID was 1.2. Cardiology was consulted and on 10/06/2019 they performed a cardiac catheterization, which showed that the stent was still patent. They would be able to medically manage him. He was discharged later the day after his bedrest was complete. He was advised to be compliant with his medications and given information for his new prescriptions. FINAL DIAGNOSES: 1. Chest pain. 2. Hypertension. 3. Hyperlipidemia. 4. Diabetes mellitus type 2. 5. Chronic kidney disease. DISCHARGE MEDICATIONS: New prescription; 1. Vascepa 1 g capsule 2 tablets p.o. twice a day with meals. 2. Nitroglycerin 0.4 mg tablets sublingual p.r.n. chest pain. 3. Senokot one tablet p.o. twice a day as needed. Resumed prescriptions; 1. Norvasc 10 mg p.o. daily. 2. Aspirin 81 mg p.o. daily. 3. Zyrtec 10 mg p.o. daily. 4. Vitamin D3 2000 units p.o. daily. 5. Clopidogrel 75 mg p.o. daily. 6. Flexeril 10 mg p.o. at bedtime. 7. Famotidine 20 mg p.o. at bedtime. 8. Fenofibrate 145 mg p.o. daily. 9. Lantus insulin pen 65 units subcu at bedtime. 10. Lisinopril 20 mg p.o. daily. 11. Melatonin 2 mg p.o. p.r.n. at bedtime. 12. Metformin 850 mg p.o. t.i.d. with meals. 13. Metoprolol 25 mg p.o. daily. 14. Multivitamin one tablet p.o. daily. 15. Crestor 20 mg p.o. daily. 16. Topiramate 50 mg p.o. b.i.d. DISCHARGE INSTRUCTIONS: The patient was encouraged to follow up with his primary care physician over this next week. He is also encouraged to take his medications as instructed and to follow up with Cardiology in 3 weeks. TIME SPENT: Total time coordinating the discharge of this patient was 35 minutes. Job ID: [id number] MTDD
== END 2019-10-06 15:47 | disposition home or self-care (01) ==
LOC: ERS 15:12 → 2NO 18:20
PROVIDERS: ADMIT Internal Medicine; ATTEND Internal Medicine
PROC: 4A023N7 Measurement of Cardiac Sampling and Pressure, Left Heart, Percutaneous Approach (ICD-10-PCS; principal; 2019-10-03)
PROC: B2111ZZ Fluoroscopy of Multiple Coronary Arteries using Low Osmolar Contrast (ICD-10-PCS; 2019-10-03)
DX: R07.2 Precordial pain (principal); I25.10 Atherosclerotic heart disease of native coronary artery without angina pectoris; I12.9 Hypertensive chronic kidney disease with stage 1 through stage 4 chronic kidney disease, or unspecified chronic kidney disease; E11.42 Type 2 diabetes mellitus with diabetic polyneuropathy; E11.22 Type 2 diabetes mellitus with diabetic chronic kidney disease; N18.9 Chronic kidney disease, unspecified; E78.5 Hyperlipidemia, unspecified; F17.210 Nicotine dependence, cigarettes, uncomplicated; J30.2 Other seasonal allergic rhinitis; I73.9 Peripheral vascular disease, unspecified; Z79.82 Long term (current) use of aspirin; Z79.4 Long term (current) use of insulin; Z79.899 Other long term (current) drug therapy; Z88.5 Allergy status to narcotic agent; Z95.5 Presence of coronary angioplasty implant and graft
CPT/HCPCS: 71045; 75630; 76942; 78452; 80048; 80053; 80061; 82962 ×4; 83036; 83690; 83735; 84443; 84484 ×2; 85025 ×2; 93005; 93017; 93458; 96372 ×2; 97139 ×3; 99285; A9500; C1769; G0378 ×5; 36415; 36416; 99152; J0153; J1644; J1650; J1815; J3010; Q9967

== ENCOUNTER 2020-02-25 14:24 | Inpatient (IN) | payer MEDICARE, OTHER ==
[~2020-02-25 14:24] MED LIST changes: +Iopamidol 370 76% 50 ML VIAL FS ONE
[2020-02-25] MEDS ORDERED: Sodium Chloride 0.9% 100 ML ONE (14:55)
[2020-02-25] MEDS ORDERED: Cefepime 2 GM VIAL ONE (14:55)
--- NOTE | 2020-02-25 15:00 | RAD ---
XR Chest 1 View Portable History: Fever Comparison: Chest radiograph January 13, 2020 Findings: Port catheter tip mid SVC. No confluent airspace consolidation, pneumothorax or effusion. N o acute osseous abnormality. Cardiac silhouette and mediastinal contours are within normal limits. Impression: No acute intrathoracic abnormality.
[2020-02-25 15:17] LABS: Hemoglobin 12.5 g/dL (14.0-18.0); Mean Corpuscular HGB CONC 33.9 g/dL (32.0-36.0); Mean Corpuscular Hemoglobin 32.9 pg (27.0-31.0); Mean Corpuscular Volume 97.1 fL (78.0-98.0); Mean Platelet Volume 10.1 fL (7.4-10.4); Platelet Count 126 thou/uL (130-400); RBC Distribution Width 13.2 % (11.5-14.5); Red Blood Cell (RBC) Count 3.79 mill/uL (4.70-6.10); White Blood Cell (WBC) Count 3.8 thou/uL (4.8-10.8)
[2020-02-25 15:39] LABS: Band 62 % (5-11); Lymphocytes 15 % (21-51); MDiff Complete? YES; Monocytes 12 % (0-10); Neutrophil 8 % (42-75); Platelet Morphology Comment Appears Decreased; Polychromasia SLIGHT = 2-3 cells (100X) (0-2/hpf); Reactive Lymphocytes 3 % (0-10)
[2020-02-25 15:41] LABS: ALT (SGPT) 10 U/L (8-55); AST (SGOT) 25 U/L (5-34); Albumin 3.8 g/dL (3.4-4.8); Alkaline Phosphatase 42 U/L (40-110); Anion Gap 19 mmol/L (10-20); BUN (Urea Nitrogen) 25 mg/dL (8.4-25.7); Bilirubin, Total 0.4 mg/dL (0.2-1.2); Calc. Creatinine Clearance 0 mL/min (70-130); Calcium 9.1 mg/dL (7.8-10.44); Carbon Dioxide 16 mmol/L (23-31); Chloride 105 mmol/L (98-107); Estimated GFR-MDRD 48; Globulin 3.3 g/dL (2.4-3.5); Glucose 169 mg/dL (80-115); Potassium 4.6 mmol/L (3.5-5.1); Protein, Total 7.1 g/dL (5.8-8.1); Sodium 135 mmol/L (136-145)
--- NOTE | 2020-02-25 16:49 | CT ---
CT Abdomen Pelvis W Con History: Abdominal pain Comparison: Abdomen CT January 02, 2020 Findings: Lung bases are clear. No pericardial effusion. Aortic contour is nonaneurysmal. Moderate diverticular disease of the sigmoid colon without active current inflammation. There is markedly circumferential wall thickening which is relatively homogeneous throughout the dist al although not terminal ileum. No significant free fluid within the pelvis. Multiple bilateral renal cysts. No hydroureteronephrosis. Mild ectasia infrarenal abdominal aorta measuring up to 2.6 cm . No acute osseous abnormality. Likely a disc extrusion at L1/L2 with caudal migration of disc and gas Impression: 1. Extensive distal ileitis with homogeneous circumferential wall thickening and mild mesenteric infl ammation. 2. Findings of a disc extrusion at L1/L2 with caudal displacement of disc material and gas. 3. Multiple bilateral renal cysts without evidence of obstructive uropathy.
--- NOTE | 2020-02-25 17:12 | PDOC.HHP ---
Hospitalist HPI - History of Present Illness Abdominal pain and fever History of Present Illness: This is a 69-year-old male history of anorectal cancer on chemoradiation presenting with abdominal pain and fever for a few days duration. Patient was diagnosed with rectal cancer about a month ago and was currently undergoing chemoradiation. His last chemoradiation was 2 days ago. He however started noticing abdominal pain about 4 days ago which is mainly central localized nonradiating and this has been getting worse. He has also had some basal diarrhea however diarrhea has also increased in frequency. He does not know whether stools are bloody because he does not check. Yesterday started having fevers with a temperature as high as 102 with intermittent Rigors and chills. He also had excessive weakness. He had anorexia denies nausea or vomiting. He denies having eaten anything unusual. Also denies any history of inflammatory bowel disease. He called Dr. Jacob his oncologist today who suggested that he come to the ED for further evaluation. At presentation his fever was within normal range and blood pressures were stable. He had a leukopenia of 3.8 with 62% bands, lactate 1.6 tachycardic. Chest x-ray unremarkable CT abdomen shows distal ileitis. Received 2 g cefepime and IV fluids Hospitalist team consulted to admit Hospitalist ROS - Review of Systems Constitutional: reports: fever, chills, weakness Respiratory: reports: cough. denies: shortness of breath, hemoptysis, SOB with excertion Gastrointestinal: reports: abdominal pain, diarrhea. denies: nausea, vomiting - Medication Medications: Medications: Clopidogrel 75 mg daily Rosuvastatin 20 mg daily Aspirin 81 mg daily Fenofibrate 1 4 5 mg daily Metformin 850 mg daily Insulin glargine 65 units Lisinopril: 20 mg daily Amlodipine: 10 mg daily Pantoprazole 40 mg daily Topiramate 50 mg daily Drug allergies: Meperidine - Exam General Appearance: awake alert Eye: PERRL, anicteric sclera Heart: RRR, no murmur, no gallops, no rubs Respiratory: no wheezes, no rales, no ronchi, normal chest expansion Respiratory - other findings: No cough Gastrointestinal - other findings: Tender in mid abdominal region. Bowel sounds present Extremities: no cyanosis, no edema Neurological: cranial nerve grossly intact, no weakness Psychiatric: normal affect, A&O x 3 Hospitalist Results - Labs Result Diagrams: 02/25/20 14:54 02/25/20 14:54 Lab results: WBC 3.8 thou/uL (4.8-10.8) L 02/25/20 14:54 Hgb 12.5 g/dL (14.0-18.0) L 02/25/20 14:54 Hct 36.8 % (42.0-52.0) L 02/25/20 14:54 MCV 97.1 fL (78.0-98.0) 02/25/20 14:54 Plt Count 126 thou/uL (130-400) L 02/25/20 14:54 Band Neuts % (Manual) 62 % (5-11) H 02/25/20 14:54 Sodium 135 mmol/L (136-145) L 02/25/20 14:54 Potassium 4.6 mmol/L (3.5-5.1) 02/25/20 14:54 Chloride 105 mmol/L (98-107) 02/25/20 14:54 Carbon Dioxide 16 mmol/L (23-31) L 02/25/20 14:54 BUN 25 mg/dL (8.4-25.7) 02/25/20 14:54 Creatinine 1.45 mg/dL (0.7-1.3) H 02/25/20 14:54 Glucose 169 mg/dL (80-115) H 02/25/20 14:54 Lactic Acid 1.6 mmol/L (0.5-2.2) 02/25/20 14:54 Calcium 9.1 mg/dL (7.8-10.44) 02/25/20 14:54 Total Bilirubin 0.4 mg/dL (0.2-1.2) 02/25/20 14:54 AST 25 U/L (5-34) 02/25/20 14:54 ALT 10 U/L (8-55) 02/25/20 14:54 Alkaline Phosphatase 42 U/L (40-110) 02/25/20 14:54 Serum Total Protein 7.1 g/dL (5.8-8.1) 02/25/20 14:54 Albumin 3.8 g/dL (3.4-4.8) 02/25/20 14:54 Hospitalist H&P A/P - Plan Plan: This is a 69-year-old male patient with a history of anorectal cancer currently on chemoradiation therapy presents with abdominal pain and diagnosed on CT scan with terminal ileitis Is going to be admitted on oncology unit and started on IV fluids and antibiotics. He will be n.p.o. Sepsis secondary to distal angiitis As leukopenia white blood cells less than 4, bands 62%,Tachycardic pulse about 100, fevers up to 102 at home with source of pain early on. Received 2 L normal saline in the ED with 2 g cefepime Lactate was 1.8 We will continue antibiotics on Zosyn 100 mils per hour D5 NS N.p.o. Follow-up on blood cultures Rectal cancer on chemoradiation Recently received chemoradiation Consult oncology for reevaluation. Thrombocytopenia Likely secondary to chemoradiation However is mild Anemia Secondary to chemoradiation hyponatremia Mild Repeat BMP CKD Stable We will monitor Diabetes [id number] 8.1 on Start standard correctional dose Restart insulin at about 60% once dose verified since she will be n.p.o. Hypertension Patient said he stopped taking blood pressure medications as his blood pressures have normalized Port placement01/16/2020 Port site does not look infected. Multiple bilateral renal cysts May nephrology evaluation Lower left thyroid gland lesion Medial right thyroid lobe lesion DVT prophylaxisLovenox CODE STATUSfull code . Dispositionpending improvement
[2020-02-25 17:34] LABS: Bacteria/HPF None Seen HPF (None Seen); Bilirubin Negative (Negative); Blood, Urine Negative (Negative); Clarity Clear (Clear); Glucose, Urine (Dipstick) Normal (Negative); Ketone, Urine Negative (Negative); Leukocyte Negative Leu/uL (Negative); Nitrite Negative (Negative); Protein, Urine (Dipstick) 30 mg/dL (Neg-Trace); RBC/HPF 0-3 HPF (0-3); Specific Gravity, Urine 1.033 (1.002-1.036); Squamous Epithelial 0-3 HPF (0-3); Urobilinogen Normal mg/dL (Less than 2); WBC/HPF 0-3 HPF (0-3); pH, Urine 5.5 (5.0-9.0)
[2020-02-25] MEDS ORDERED: Dextrose 5% in Water 1,000 ML IV PRN (17:54)
[2020-02-25] MEDS ORDERED: Dextrose 50% Abboject 50 ML SYRINGE SLOW IVP PRN (17:54)
[2020-02-25] MEDS ORDERED: Ondansetron PF 4 MG/2 ML Vial IVP PRN (17:54)
[2020-02-25] MEDS ORDERED: Ondansetron ODT 4 MG TAB PO PRN (17:54)
[2020-02-25] MEDS: Piperacillin/Tazobactam 4.5 GM in Sodium Chloride 0.9% 100 ML IVPB SCH (21:56)
[2020-02-25] MEDS: Dextrose 5 % And 0.9 % NaCl 1,000 ML IV SCH (21:57)
[2020-02-26 02:20] VITALS: BMI 23.9
[2020-02-26] MEDS: Dextrose 5 % And 0.9 % NaCl 1,000 ML IV SCH ×2 (05:29→15:17)
[2020-02-26] MEDS: Piperacillin/Tazobactam 4.5 GM in Sodium Chloride 0.9% 100 ML IVPB SCH ×3 (05:30→21:38)
[2020-02-26 07:03] LABS: ALT (SGPT) 12 U/L (8-55); AST (SGOT) 21 U/L (5-34); Albumin 3.1 g/dL (3.4-4.8); Alkaline Phosphatase 37 U/L (40-110); Anion Gap 12 mmol/L (10-20); BUN (Urea Nitrogen) 21 mg/dL (8.4-25.7); Bilirubin, Total 0.3 mg/dL (0.2-1.2); Calc. Creatinine Clearance 65 mL/min (70-130); Calcium 8.1 mg/dL (7.8-10.44); Carbon Dioxide 19 mmol/L (23-31); Chloride 110 mmol/L (98-107); Estimated GFR-MDRD 63; Globulin 2.4 g/dL (2.4-3.5); Glucose 188 mg/dL (80-115); Potassium 3.6 mmol/L (3.5-5.1); Protein, Total 5.5 g/dL (5.8-8.1); Sodium 137 mmol/L (136-145)
[2020-02-26] MEDS: Enoxaparin Sodium 40 MG/0.4 ML SYRINGE SC SCH (08:36)
[2020-02-26 12:01] LABS: SARS-CoV-2 MS2 Positive; SARS-CoV-2 N Gene Negative; SARS-CoV-2 S Gene Negative; SARS-CoV-2 by NAA Not Detected (NotDetected); SARS-CoV-2 orf1ab Negative
--- NOTE | 2020-02-26 14:02 | PDOC.HOSPP ---
- Subjective Encounter Date: 02/26/20 Encounter Time: 10:00 Subjective: Patient was seen and examined in bed. He has ongoing abdominal pain. Complains of hunger and would want to eathe is n.p.o. He denies any chest pain or shortness of breath - Objective Vital Signs & Weight: Vital Signs (12 hours) Temp Pulse Resp BP BP Pulse Ox 02/26/20 12:00 97.7 F 76 18 123/61 99 02/26/20 08:36 97 02/26/20 08:00 97.9 F 81 18 97/53 L 97 02/26/20 03:46 98.4 F 82 16 96/55 L 97 Weight Weight 166 lb 9.6 oz I&O: 02/25/20 02/26/20 02/27/20 06:59 06:59 06:59 Intake Total 800 Balance 800 Result Diagrams: 02/25/20 14:54 02/26/20 06:01 Additional Labs: Accuchecks 02/26/20 12:22 POC Glucose 187 H Hospitalist ROS - Medication Medications: Active Medications Generic Name Dose Route Start Last Admin Trade Name Freq PRN Reason Stop Dose Admin Enoxaparin Sodium 40 mg 02/26/20 09:00 02/26/20 08:36 Enoxaparin Sodium 40 Mg/0.4 Ml Syringe SC 40 mg 0900 JUAN DAVID Administration Piperacillin Sod/Tazobactam 100 mls @ 200 mls/hr 02/25/20 22:00 02/26/20 05:30 Sod 4.5 gm/ Sodium Chloride IVPB 100 mls Q8HR JUAN DAVID Administration Dextrose/Sodium Chloride 1,000 mls @ 100 mls/hr 02/25/20 18:00 02/26/20 05:29 D5 0.9% Ns IV 1,000 mls .Q10H JUAN DAVID Administration - Exam General - other findings: In bed, no acute distress. Heart: RRR, no murmur, no gallops, no rubs, normal peripheral pulses Respiratory: no wheezes, no rales, no ronchi Gastrointestinal - other findings: Tender, no rebound tenderness or guarding Extremities - other findings: No peripheral edema. Neurological: cranial nerve grossly intact, no focal deficits Psychiatric: A&O x 3 Hosp A/P - Plan This is a 69-year-old male patient with a history of anorectal cancer currently on chemoradiation therapy admitted with with terminal ileitis Currently on antibiotics, n.p.o. and awaiting GI evaluation Sepsis secondary to distal ileitis On admission No growth on cultures so far We will continue on antibioticsfollow-up cultures. ileitis Treatment as above. Rectal cancer on chemoradiation Recently received chemoradiation Consult oncology for reevaluation. Thrombocytopenia Likely secondary to chemoradiation However is mild Anemia Secondary to chemoradiation hyponatremia Mild Repeat BMP RUBIN on CKD Creatinine was 1.4 for first presentation Now 1.16with IV fluid Monitor Diabetes [id number] 8.1 on Start standard correctional dose Restart insulin at about 60% once dose verified since she will be n.p.o. Hypertension Patient said he stopped taking blood pressure medications as his blood pressures have normalized Multiple bilateral renal cysts May nephrology evaluation Lower left thyroid gland lesion Medial right thyroid lobe lesion DVT prophylaxisLovenox CODE STATUSfull code . Dispositionpending improvement
[2020-02-26] MEDS ORDERED: HYDROcodone/Acetaminophen 5/325 mg Tablet PO PRN (15:45)
[2020-02-26] MEDS: HumaLOG 300 UNITS/3 ML VIAL SC PRN (17:29)
--- NOTE | 2020-02-26 19:38 | CON ---
DATE OF CONSULTATION: REASON FOR CONSULT: Lower abdominal pain, fever, acute onset in the setting of 3 weeks of intermittent loose stools 3 times per day since starting radiation therapy and chemotherapy for a stage II anal cancer. HISTORY OF PRESENT ILLNESS: Mr. Romo is a 69-year-old gentleman, who was diagnosed earlier this Fall with stage II rectal cancer. He had had a colonoscopy that was normal. Had ongoing anal pain and ultimately was sent to Colorectal Surgery, on exam under anesthesia, detected a firm mass that was biopsied. He started radiation therapy in early December and then about 3 weeks later, started chemotherapy. Before starting chemotherapy, but after starting radiation by about a week or two, he began to have loose stools, averaging loose to soft 3 times per day. He did fine, although was fatigued and tired most of the time and really was not doing a lot, when this past weekend, he felt a little better and when out, mowed the yard did not feel well and on by Sunday, he started to have some lower abdominal discomfort. He began to have more watery diarrhea than yesterday, had fevers up to 102 and some rigors and it was recommended he come to the hospital by Dr. Jacob, his oncologist. Today, he feels better. He has been afebrile since he has been here. Blood cultures have been obtained and he has been started on broad-spectrum antibiotics. He has some anorexia, but denies any nausea or vomiting. He has no melena or hematochezia. His stools are much looser and about 5 or 6 times a day, much more than his usual 2 to 3 and much more watery than that as well. He also was having suprapubic pain. The patient did have a CT scan that showed some inflammation in the ileum, but not involving the terminal ileum. He did have 62% bands on admission as well as mildly tachycardic. Presently today, he is feeling better, he wants to try to eat something. He denies any sick contacts. He denies any recent antibiotics antecedent to this. REVIEW OF SYSTEMS: CONSTITUTIONAL: Fever, chills, and weakness. RESPIRATORY: Negative for cough, shortness of breath, dyspnea on exertion, or hemoptysis. GI: Negative for dysphagia or odynophagia. Positive for lower abdominal pain with some worsening of his chronic diarrhea. No bleeding. SKIN: No rash or lesions. UROLOGIC: Negative. MEDICATIONS AT HOME: 1. Plavix. 2. Rosuvastatin. 3. Aspirin. 4. Fenofibrate. 5. Metformin. 6. Insulin. 7. Lisinopril. 8. Amlodipine. 9. Protonix 40 mg a day. 10. Topiramate. ALLERGIES: DEMEROL. PRESENT MEDICATIONS: Here; 1. Plavix. 2. D5 normal saline 100 an hour. 3. Lovenox 40 daily. 4. Fenofibrate. 5. Gabapentin. 6. Insulin sliding scale. 7. Zofran p.r.n. 8. Pantoprazole 40 mg daily. 9. Zosyn q.8 hours. 10. Crestor. 11. Topamax daily. PHYSICAL EXAMINATION: GENERAL: The patient is resting comfortably in bed. He is without complaints. He has had nothing to eat or drink and he would like to try that. HEENT: Oropharynx without lesions. NECK: Supple without adenopathy. LUNGS: Clear. HEART: Regular rate and rhythm without clicks or murmurs. ABDOMEN: Mild to moderate tenderness to the lower abdomen, especially in the lower suprapubic area and right side. There is voluntary guarding but no rebound. EXTREMITIES: Reveal no clubbing, cyanosis, or edema. LABORATORY STUDIES: Today, white count is 3.8 from 2.7 on 02/16/2020. Hemoglobin is 12.5, platelets 126, 62% bands, 8% neutrophils. Sodium 137, potassium 3.6, BUN and creatinine are 21 and 1.16. Liver function tests are normal. Protein 5.5, albumin 3.1. TSH was normal . Urinalysis on 02/24 showed some urine protein, but no white blood cells or red blood cells. Imaging, CT scan was evaluated by myself. Urine culture, influenza negative on admission. Blood cultures pending on admission. ASSESSMENT: The patient likely had an acute gastrointestinal infection on top of side effects he was having from his chemotherapy and radiation, which was basically just a little bit of loose stool three times per day that was controlled with Imodium at home. When he became ill a few days ago, his diarrhea became more watery and increased in volume and he developed fever and cramps. He has an ileitis on CT. Differential diagnosis would include Campylobacter and Yersinia enterocolitica. Opportunistic infections would be less likely. Other bacterial infections such as Shigella or salmonellosis could be potentials as well. This does not appear to be related to his chemotherapy. He states he is not on any kind of immunotherapy, although he is not sure what medications he is on. I do not think this is related to radiation therapy as his radiation is given focally at the anal opening. RECOMMENDATIONS: 1. Continue present antibiotics. 2. Get stool cultures. 3. Continue IV fluids and supportive care. We will let him to have liquid diet and follow along with you. Job ID: [id number]
--- NOTE | 2020-02-26 20:01 | CON ---
DATE OF CONSULTATION: REASON FOR CONSULTATION: Anal cancer. HISTORY OF PRESENT ILLNESS: Mr. Romo is a 69-year-old gentleman with stage IIA anal cancer. He has a 4 cm mass in his anal canal. He is currently on concurrent chemoradiation with 5FU and mitomycin. His last chemo was on February 04. Yesterday, he began to have abdominal cramping just below his umbilicus, rated at 9/10. He also had 102 fever, so presented to the emergency room for evaluation. Here, he underwent a CT of his abdomen and pelvis, which showed extensive distal ileitis with homogeneous circumferential wall thickening and mild mesenteric information. He was pancultured, all of which has been negative and is awaiting stool studies. He is on antibiotics and states his pain is intermittent. Denies any pain at this time. PAST MEDICAL HISTORY: 1. Stage IIA anal canal cancer. 2. Diabetes mellitus 2. 3. Hypertension. 4. Hyperlipidemia. 5. Gastroesophageal reflux disease. 6. History of basal-cell carcinoma. PAST SURGICAL HISTORY: 1. Anorectal surgery. 2. Colonoscopy. 3. Inguinal hernia repair. 4. Back surgery. 5. Appendectomy. ALLERGIES: DEMEROL. HOME MEDICATIONS: 1. Clopidogrel. 2. Crestor. 3. Fenofibrate. 4. Gabapentin. 5. Metformin. 6. Insulin. 7. Protonix. 8. Flomax. 9. Topiramate. 10. Vascepa. FAMILY HISTORY: Mother had colon cancer. Brother had liver cancer. SOCIAL HISTORY: , has 6 children. Lives with spouse. Everyday smoker, 50 pack-year history. No alcohol or illicit drug use. REVIEW OF SYSTEMS: A 10-point review of system is negative except for noted in HPI. PHYSICAL EXAMINATION: VITAL SIGNS: Temperature is 97.7, pulse is 76, respiratory rate 18, BP is 123/61. He is 99% on room air. GENERAL: A well-developed, well-nourished male, in no acute distress. HEENT: Normocephalic, atraumatic. Pupils are equal and reactive to light. NECK: Supple. CV: Regular rate and rhythm. LUNGS: Clear. ABDOMEN: Soft and nontender. Bowel sounds are positive. EXTREMITIES: No clubbing or cyanosis. SKIN: No rash. HEMATOLOGICAL: No petechiae or purpura. NEUROLOGIC: Nonfocal. PERTINENT LABORATORY DATA AND X-RAYS: Current WBCs 3.8, hemoglobin 12.5, hematocrit 36.8, platelet count is 126,000, 8% neutrophils, 62% bands, 15% lymphs. Sodium 137, potassium 3.6, chloride 110, CO2 is 19, BUN is 21, creatinine 1.16. Lactic acid 1.6. Calcium 8.1, bilirubin 0.3, AST is 21, ALT is 12, alkaline phosphatase is 37. Serum total protein is 5.5, albumin 3.1, globulin 2.4. Urine is negative. COVID PCR is negative. ASSESSMENT: 1. Distal ileitis. 2. History of anal canal cancer, on concurrent chemoradiation. DISCUSSION: Case has been discussed with Dr. Munoz and Dr. Barbosa. Dr. Barbosa states that this ileum is not in the radiation field, this is likely from infection. Stool studies are currently pending. He is on antibiotics and IV hydration. We will add [place] for pain. Hopefully, he will improve over the next 24 hours and be able to discharge home to continue treatment in the outpatient setting. Thank you for the consult. Job ID: [id number]
[2020-02-26] MEDS: Gabapentin 300 MG CAP PO SCH ×2 (20:05→20:07)
[2020-02-26] MEDS: Topiramate 25 MG TAB PO SCH (20:05)
--- NOTE | 2020-02-26 20:29 | CON ---
DATE OF CONSULTATION: 02/26/2020 REASON FOR CONSULT: Mr. Romo is a 69-year-old gentleman who has been admitted for ileitis. HISTORY OF PRESENT ILLNESS: Mr. Romo is known to me. 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 He is on concurrent chemotherapy and radiation. Presently, he is at 32.4 Gy. His last treatment was on Sunday. He was admitted to the hospital after several days of fever and abdominal pain. He underwent a CT scan of the abdomen and pelvis, which showed inflammation in the distal ileum and mesentery. He was febrile with fever up to 102. White blood cell count showed a left shift, but he was not neutropenic. He was admitted to the hospital and placed on IV antibiotics. Today when I saw him, he reports that his abdominal pain is doing a little better. He still does not feel back to normal. He is still having bowel movement with some diarrhea. He has no shortness of breath. He has no nausea or vomiting. He voices no other complaints. PAST MEDICAL HISTORY: 1. Hypertension. 2. Diabetes. 3. Hypercholesterolemia. 4. BPH. 5. Status post lumbar laminectomy. 6. Status post bilateral hernia repair. 7. Status post knee arthroscopic surgery. 8. Status post appendectomy. MEDICATIONS: 1. Plavix. 2. Lovenox. 3. Neurontin. 4. Glucagon. 5. Lacarne. 6. Insulin. 7. Zofran. 8. Protonix. 9. Crestor. 10. Flomax. 11. Topamax. ALLERGIES: DEMEROL, WHICH CAUSED ANAPHYLACTIC REACTION. SOCIAL HISTORY: He has smoked 1/2 pack per day to 1 pack per day for more than 50 years. He is trying to quit. He has no alcohol use. He lives with his in [place], [place]. He is retired. FAMILY HISTORY: His mother in her late 60s from colon cancer. Father at age 70 from an aneurysm and stroke. Brother in his 50s from cirrhosis. There is no family history of malignancy. REVIEW OF SYSTEMS: A 12-system review of systems is otherwise negative. PHYSICAL EXAMINATION: VITAL SIGNS: Height 5 feet 9 inches, weight 166 pounds. Blood pressure is 121/64, pulse is 81, respirations are 18, temperature is 98.1, O2 saturation is 100% on room air. CONSTITUTIONAL: He is alert and oriented and in mild discomfort. Karnofsky performance status is 80%. NECK: Supple without cervical or supraclavicular adenopathy. No thyromegaly. LUNGS: Breathing nonlabored. Clear to auscultation and percussion. CARDIOVASCULAR: Heart, regular rate and rhythm without murmur. No lower extremity edema. ABDOMEN: Soft with some mild periumbilical tenderness. There is no distention. No rebound or guarding. Liver percusses to normal size. SKIN: Without rash or purpura. When examined 2 days ago, he had mild erythema in the perianal area from the radiation as expected, but no areas of moist desquamation. LABORATORY DATA: CBC revealed a white blood count of 3800 with a hemoglobin of 12.5, hematocrit of 36.8, and platelet count of 126,000. There was 8% neutrophils and 62% bands. Chemistry group showed fairly normal electrolytes. Creatinine was 1.16. RADIOLOGIC DATA: CT scan of the abdomen and pelvis on admission was personally reviewed. He does have some thickening of the distal ileum with some changes in the mesentery. ASSESSMENT: Mr. Romo is a 69-year-old gentleman who was admitted to the hospital with abdominal pain and fever with inflammation in the distal ileum on CT scan. He has a fairly significant left shift on his CBC. I think infectious etiology is more likely to be the case rather than toxicity from his therapy. His dose at this point is still fairly low and I would not expect him to develop enteritis at this dose even with concurrent chemotherapy. It already seems to be responding to his antibiotics. His pain has improved. PLAN: We will hold his radiation therapy today and will likely hold his treatment tomorrow. Hopefully, we will be able to resume his radiation by Sunday. I agree with the antibiotics and agree with supportive care is being given. Thank you for this interesting consultation. Job ID: [id number]
[2020-02-26] MEDS ORDERED: Acetaminophen 325 MG TAB PO PRN (20:58)
[2020-02-26] MEDS ORDERED: diphenhydrAMINE 25 MG CAP PO SCH (21:15)
[2020-02-27] MEDS: Piperacillin/Tazobactam 4.5 GM in Sodium Chloride 0.9% 100 ML IVPB SCH ×3 (05:42→22:01)
[2020-02-27 05:59] LABS: Anion Gap 11 mmol/L (10-20); BUN (Urea Nitrogen) 11 mg/dL (8.4-25.7); Calc. Creatinine Clearance 69 mL/min (70-130); Calcium 8.5 mg/dL (7.8-10.44); Carbon Dioxide 20 mmol/L (23-31); Chloride 113 mmol/L (98-107); Estimated GFR-MDRD 67; Glucose 145 mg/dL (80-115); Potassium 4.2 mmol/L (3.5-5.1); Sodium 140 mmol/L (136-145)
[2020-02-27 06:05] LABS: Band 14 % (5-11); Eosinophils 2 % (0-10); Hemoglobin 10.7 g/dL (14.0-18.0); Hypochromia SLIGHT = 6-15 cells (100X) (0-5/hpf); Lymphocytes 46 % (21-51); MDiff Complete? YES; Mean Corpuscular HGB CONC 33.7 g/dL (32.0-36.0); Mean Corpuscular Volume 97.7 fL (78.0-98.0); Mean Platelet Volume 10.2 fL (7.4-10.4); Monocytes 12 % (0-10); Neutrophil 26 % (42-75); Platelet Count 126 thou/uL (130-400); Platelet Morphology Comment Appears Adequate; RBC Distribution Width 13.5 % (11.5-14.5); Red Blood Cell (RBC) Count 3.24 mill/uL (4.70-6.10); White Blood Cell (WBC) Count 1.6 thou/uL (4.8-10.8)
[2020-02-27] MEDS: Tamsulosin HCl 0.4 MG CAP PO SCH (08:27)
[2020-02-27] MEDS: Rosuvastatin 20 MG TAB PO SCH (08:27)
[2020-02-27] MEDS: Clopidogrel Bisulfate 75 MG TAB PO SCH (08:27)
[2020-02-27] MEDS: Topiramate 25 MG TAB PO SCH ×2 (08:27→20:00)
[2020-02-27] MEDS: Fenofibrate Nanocrystallized 145 MG TAB PO SCH (08:27)
[2020-02-27] MEDS: Enoxaparin Sodium 40 MG/0.4 ML SYRINGE SC SCH (08:27)
[2020-02-27] MEDS: HumaLOG 300 UNITS/3 ML VIAL SC PRN ×2 (08:44→16:59)
--- NOTE | 2020-02-27 11:03 | PRG ---
DATE OF SERVICE: 02/27/2020 SUBJECTIVE: Mr. Romo reports he still has some lower abdominal discomfort, mild. His stool is loose until actually the 2nd stool this morning, it was a little bit more formed. He has no blood in the stool. He does feel like eating a little more than liquids. PHYSICAL EXAMINATION: LUNGS: Clear. HEART: Regular rhythm. ABDOMEN: Soft, much less tender in lower abdomen than yesterday. EXTREMITIES: No edema. ASSESSMENT: 1. Likely gastroenteritis. 2. History of anal cancer, on therapy. Presently, no labs available in the computer or vital signs as the computers are down. RECOMMENDATIONS: Advance diet as tolerated. We will try to follow up on lab results later. Job ID: [id number]
--- NOTE | 2020-02-27 13:06 | PDOC.HOSPP ---
- Subjective Encounter Date: 02/27/20 Encounter Time: 10:00 Subjective: Patient was seen and examined in bed. Had a good night. Abdominal pain significantly decreased. Having some mild diarrhea but improved. He denies any chest pain cough or shortness of breath - Objective Vital Signs & Weight: Vital Signs (12 hours) Temp Pulse Resp BP Pulse Ox 02/27/20 12:00 98.3 F 82 18 116/64 100 02/27/20 08:00 97.6 F 76 18 118/66 99 02/27/20 04:00 98.2 F 68 16 116/68 97 Weight Admit Weight 166 lb 9.6 oz Weight 166 lb 9.6 oz I&O: 02/26/20 02/27/20 02/28/20 06:59 06:59 06:59 Intake Total 800 2510 Balance 800 2510 Result Diagrams: 02/27/20 05:30 02/27/20 05:30 Additional Labs: Accuchecks 02/27/20 02/27/20 02/26/20 12:01 08:36 20:14 POC Glucose 106 H 154 H 138 H 02/26/20 16:16 POC Glucose 194 H Hospitalist ROS - Medication Medications: Active Medications Generic Name Dose Route Start Last Admin Trade Name Freq PRN Reason Stop Dose Admin Acetaminophen 650 mg 02/26/20 20:58 02/26/20 21:38 Acetaminophen 325 Mg Tab PO 650 mg Q4H PRN Administration Headache/Fever/Mild Pain (1-3) Clopidogrel Bisulfate 75 mg 02/27/20 09:00 02/27/20 08:27 Clopidogrel Bisulfate 75 Mg Tab PO 75 mg QAM JUAN DAVID Administration Enoxaparin Sodium 40 mg 02/26/20 09:00 02/27/20 08:27 Enoxaparin Sodium 40 Mg/0.4 Ml Syringe SC 40 mg 0900 JUAN DAVID Administration Fenofibrate 145 mg 02/27/20 09:00 02/27/20 08:27 Fenofibrate Nanocrystallized 145 Mg Tab PO 145 mg QAM JUAN DAVID Administration Gabapentin 300 mg 02/26/20 21:00 02/26/20 20:07 Gabapentin 300 Mg Cap PO Not Given QPM JUAN DAVID Piperacillin Sod/Tazobactam 100 mls @ 200 mls/hr 02/25/20 22:00 02/27/20 05:42 Sod 4.5 gm/ Sodium Chloride IVPB 100 mls Q8HR JUAN DAVID Administration Insulin Human Lispro 0 units 02/25/20 17:54 02/27/20 08:44 Humalog 300 Units/3 Ml Vial SC 2 unit .MILD SLIDING SCALE PRN Administration Mild Correctional Scale Pantoprazole Sodium 40 mg 02/27/20 09:00 02/27/20 08:27 Pantoprazole 40 Mg Tab PO 40 mg QAM JUAN DAVID Administration Rosuvastatin Calcium 20 mg 02/27/20 09:00 02/27/20 08:27 Rosuvastatin 20 Mg Tab PO 20 mg QAM JUAN DAVID Administration Tamsulosin HCl 0.4 mg 02/27/20 09:00 02/27/20 08:27 Tamsulosin Hcl 0.4 Mg Cap PO 0.4 mg QAM JUAN DAVID Administration Topiramate 50 mg 02/26/20 21:00 02/27/20 08:27 Topiramate 25 Mg Tab PO 50 mg BID JUAN DAVID Administration - Exam General Appearance: awake alert Eye: PERRL, anicteric sclera Heart: RRR, no murmur, no gallops, no rubs Respiratory: no wheezes, no rales, no ronchi Gastrointestinal: soft, non-distended, normal bowel sounds, tender to palpation (Mild) Extremities: no cyanosis, no clubbing, no edema Neurological: cranial nerve grossly intact, no weakness Psychiatric: A&O x 3 Hosp A/P - Plan This is a 69-year-old male patient with a history of anal cancer currently on chemoradiation therapy admitted with with terminal ileitis Currently on antibiotics and generally improving. Gastroenterology is on board. Sepsis secondary to distal ileitis Resolved No growth on cultures so far We will continue on antibioticsfollow-up cultures. ileitis Continue antibioticsZosyn Follow-up on cultures. GI following Rectal cancer on chemoradiation Recently received chemoradiation No further oncology treatment for now He will follow-up after discharge Thrombocytopenia Likely secondary to chemoradiation However is mild Anemia Secondary to chemoradiation Leukopenia White blood cells decreased from 3.8-1.6 This is worsened a little. Secondary to chemoradiation We will keep monitoring. hyponatremia Resolved RUBIN on CKD Resolved Continue monitoring BMP Diabetes [id number] 8.1 on On 40 units glargine at home Was n.p.o. however adjusted feeding We will do ACHS insulin at the momentstart basal insulin once insulin requirements are clear. Blood sugar control for now. Hypertension Patient said he stopped taking blood pressure medications as his blood pressures have normalized Blood pressure stable for now Continue monitoring Multiple bilateral renal cysts May need nephrology on outpatient basis Renal function stable Thyroid nodules Lower left thyroid gland lesion Medial right thyroid lobe lesion To be evaluated on follow-up after discharge. DVT prophylaxisLovenox CODE STATUSfull code Dispositionpending improvement
--- NOTE | 2020-02-27 15:23 | PDOC.MOPN ---
Interval History: taking solid food, BM slightly improved. Pain better. - Vital Signs Vital Signs: Vital Signs (12 hours) Temp Pulse Resp BP Pulse Ox 02/27/20 12:00 98.3 F 82 18 116/64 100 02/27/20 08:00 97.6 F 76 18 118/66 99 02/27/20 04:00 98.2 F 68 16 116/68 97 Weight Admit Weight 166 lb 9.6 oz Weight 166 lb 9.6 oz - Physical Exam General: Alert, Oriented x3, No acute distress HEENT: Atraumatic, PERRLA, EOMI, Mucous membr. moist/pink Lungs: Clear to auscultation, Normal air movement Cardiovascular: Regular rate, Normal S1, Normal S2, No murmurs, Gallops, Rubs Abdomen: Normal bowel sounds, Soft, No tenderness, No hepatospenomegaly, No masses Extremities: No clubbing, No cyanosis, No edema, Normal pulses, No tenderness/swelling Skin: No rashes, No breakdown, No significant lesion Neurological: Normal gait, Normal speech, Strength at 5/5 X4 ext, Normal tone, Sensation intact, Cranial nerves 3-12 NL, Reflexes 2+ Psych/Mental Status: Mental status NL, Mood NL - Labs Result Diagrams: 02/27/20 05:30 02/27/20 05:30 Lab results: Laboratory Results - last 24 hr 02/27/20 12:01: POC Glucose 106 H 02/27/20 08:36: POC Glucose 154 H 02/27/20 05:30: WBC 1.6 L, RBC 3.24 L, Hgb 10.7 L, Hct 31.7 L, MCV 97.7, MCH 33.0 H, MCHC 33.7, RDW 13.5, Plt Count 126 L, MPV 10.2, Neutrophils % (Manual) 26 L, Band Neuts % (Manual) 14 H, Lymphocytes % (Manual) 46, Monocytes % (Manual) 12 H, Eosinophils % (Manual) 2, Hypochromia SLIGHT = 6-15 cells, Plt Morphology Comment Appears Adequate 02/27/20 05:30: Sodium 140, Potassium 4.2, Chloride 113 H, Carbon Dioxide 20 L, Anion Gap 11, BUN 11, Creatinine 1.10, Estimated GFR (MDRD) 67, Glucose 145 H, Calcium 8.5 02/26/20 20:14: POC Glucose 138 H 02/26/20 16:16: POC Glucose 194 H Status: lab reviewed by me A/P - Problem (1) Anal cancer Current Visit: Yes Code(s): C21.0 - MALIGNANT NEOPLASM OF ANUS, UNSPECIFIED Status: Acute - Plan Plan: continue abx, pain meds home with cleared by Dr. Pacheco follow-up next week to resume treatment
[2020-02-27] MEDS: Gabapentin 300 MG CAP PO SCH (20:00)
[2020-02-28] MEDS: Piperacillin/Tazobactam 4.5 GM in Sodium Chloride 0.9% 100 ML IVPB SCH ×2 (06:13→14:09)
[2020-02-28] MEDS: Fenofibrate Nanocrystallized 145 MG TAB PO SCH (08:40)
[2020-02-28] MEDS: Tamsulosin HCl 0.4 MG CAP PO SCH (08:40)
[2020-02-28] MEDS: Topiramate 25 MG TAB PO SCH (08:40)
[2020-02-28] MEDS: Clopidogrel Bisulfate 75 MG TAB PO SCH (08:40)
[2020-02-28] MEDS: Enoxaparin Sodium 40 MG/0.4 ML SYRINGE SC SCH (08:40)
[2020-02-28] MEDS: Rosuvastatin 20 MG TAB PO SCH (08:40)
[2020-02-28 12:02] VITALS: BP 110/62; TEMP 97.8
[2020-02-28] MEDS: HumaLOG 300 UNITS/3 ML VIAL SC PRN (12:52)
--- NOTE | 2020-02-28 14:43 | PDOC.HOSPP ---
- Subjective Encounter Date: 02/28/20 Encounter Time: 14:41 Subjective: Mr. Romo was seen today in follow-up of ileitis. He is feeling better, and wants to go home. - Objective Vital Signs & Weight: Vital Signs (12 hours) Temp Pulse Resp BP BP BP Pulse Ox 02/28/20 12:00 97.8 F 77 18 110/62 99 02/28/20 07:59 97.5 F L 86 18 102/62 99 02/28/20 04:00 98.6 F 81 16 116/60 99 Weight Admit Weight 166 lb 9.6 oz Weight 166 lb 9.6 oz I&O: 02/27/20 02/28/20 02/29/20 06:59 06:59 06:59 Intake Total 2510 1780 Balance 2510 1780 Result Diagrams: 02/27/20 05:30 02/27/20 05:30 Additional Labs: Accuchecks 02/28/20 02/28/20 02/27/20 12:16 06:20 20:04 POC Glucose 193 H 140 H 140 H 02/27/20 16:49 POC Glucose 191 H Hospitalist ROS - Medication Medications: Active Medications Generic Name Dose Route Start Last Admin Trade Name Freq PRN Reason Stop Dose Admin Acetaminophen 650 mg 02/26/20 20:58 02/26/20 21:38 Acetaminophen 325 Mg Tab PO 650 mg Q4H PRN Administration Headache/Fever/Mild Pain (1-3) Hydrocodone Bitart/Acetaminophen 1 tab 02/26/20 15:45 02/27/20 20:00 Hydrocodone/Acetaminophen 5/325 Mg Tablet PO 1 tab Q4H PRN Administration Moderate to Severe Pain (6-10) Clopidogrel Bisulfate 75 mg 02/27/20 09:00 02/28/20 08:40 Clopidogrel Bisulfate 75 Mg Tab PO 75 mg QAM JUAN DAVID Administration Enoxaparin Sodium 40 mg 02/26/20 09:00 02/28/20 08:40 Enoxaparin Sodium 40 Mg/0.4 Ml Syringe SC 40 mg 0900 JUAN DAVID Administration Fenofibrate 145 mg 02/27/20 09:00 02/28/20 08:40 Fenofibrate Nanocrystallized 145 Mg Tab PO 145 mg QAM JUAN DAVID Administration Gabapentin 300 mg 02/26/20 21:00 02/27/20 20:00 Gabapentin 300 Mg Cap PO Not Given QPM JUAN DAVID Piperacillin Sod/Tazobactam 100 mls @ 200 mls/hr 02/25/20 22:00 02/28/20 14:09 Sod 4.5 gm/ Sodium Chloride IVPB 100 mls Q8HR JUAN DAVID Administration Insulin Human Lispro 0 units 02/25/20 17:54 02/28/20 12:52 Humalog 300 Units/3 Ml Vial SC 2 unit .MILD SLIDING SCALE PRN Administration Mild Correctional Scale Pantoprazole Sodium 40 mg 02/27/20 09:00 02/28/20 08:40 Pantoprazole 40 Mg Tab PO 40 mg QAM JUAN DAVID Administration Rosuvastatin Calcium 20 mg 02/27/20 09:00 02/28/20 08:40 Rosuvastatin 20 Mg Tab PO 20 mg QAM JUAN DAVID Administration Tamsulosin HCl 0.4 mg 02/27/20 09:00 02/28/20 08:40 Tamsulosin Hcl 0.4 Mg Cap PO 0.4 mg QAM JUAN DAVID Administration Topiramate 50 mg 02/26/20 21:00 02/28/20 08:40 Topiramate 25 Mg Tab PO 50 mg BID JUAN DAVID Administration - Exam Eye: PERRL, anicteric sclera Heart: RRR, no murmur, no gallops, no rubs, normal peripheral pulses Respiratory: CTAB, no wheezes, no rales, no ronchi, normal chest expansion, no tachypnea Gastrointestinal: soft, non-tender, non-distended, normal bowel sounds, no palpable masses Extremities: no cyanosis, no edema Hosp A/P (1) Ileitis, terminal Code(s): K50.00 - CROHN'S DISEASE OF SMALL INTESTINE WITHOUT COMPLICATIONS Status: Acute (2) Anal cancer Code(s): C21.0 - MALIGNANT NEOPLASM OF ANUS, UNSPECIFIED Status: Chronic (3) Chronic kidney disease Code(s): N18.9 - CHRONIC KIDNEY DISEASE, UNSPECIFIED Status: Chronic Qualifiers: Chronic kidney disease stage: stage 2 (mild) Qualified Code(s): N18.2 - Chronic kidney disease, stage 2 (mild) (4) Diabetes mellitus, type 2 Status: Chronic (5) HTN (hypertension) Code(s): I10 - ESSENTIAL (PRIMARY) HYPERTENSION Status: Chronic Qualifiers: Hypertension type: essential hypertension Qualified Code(s): I10 - Essential (primary) hypertension - Plan * Terminal Ileitis- improved- he can be transition to Augmentin * Anal cancer- as per Oncology * Stable for discharge home
--- NOTE | 2020-02-28 21:45 | DIS ---
DATE OF ADMISSION: 02/25/2020 DATE OF DISCHARGE: 02/28/2020 DISCHARGE DISPOSITION: Home. DISCHARGE DIAGNOSES: 1. Terminal ileitis. 2. History of anal cancer. 3. Diabetes mellitus type 2. 4. Hypertension. 5. Renal cyst. 6. Acute on chronic kidney disease, stage 2. DISCHARGE MEDICATIONS: 1. Augmentin 875 mg one p.o. b.i.d. 2. Florastor 250 mg p.o. daily. 3. Vascepa 1 g p.o. b.i.d. 4. Topiramate 50 mg p.o. b.i.d. 5. Flomax 0.4 mg p.o. daily. 6. Protonix 40 mg p.o. daily. 7. Lantus insulin 40 units subcu at bedtime. 8. Metformin 850 mg p.o. b.i.d. 9. Gabapentin 300 mg p.o. q.p.m. 10. Fenofibrate 145 mg daily. 11. Crestor 20 mg daily. 12. Plavix 75 mg daily. IMAGING DONE DURING THE HOSPITAL STAY: The patient had a CT scan of the abdomen and pelvis, which demonstrated significant distal ileitis with circumferential wall thickening and mild mesenteric inflammation. CODE STATUS: Full code. ALLERGIES: MEPERIDINE. HOSPITAL COURSE: Mr. Romo is a pleasant 69-year-old male, who was admitted to the hospital with complaints of severe abdominal pain. The full details of which are outlined in the history and physical by Dr. Escamilla. He was found to have distal ileitis and was placed on IV antibiotics. He was seen by the Gastroenterology Service as well as Oncology and Radiation Oncology. It was recommended that he continue treatment for the distal ileitis. Further treatment with regard to the anal cancer would be deferred upon discharge. Once he was clinically stable, he was able to be discharged home and is expected to have close outpatient followup with his primary care physician in 1 week and also with his oncologist as scheduled. Job ID: [id number]
--- NOTE | 2020-03-02 04:32 | PQF ---
Dear : Mario Medley Date 03/02/20 Please exercise your independent, professional judgment in responding to the clarification form. Clinical indicators are provided on the bottom of this form for your review Can you please further clarify the diagnosis of the patient? Please check appropriate box(es): [ ] Pancytopenia unspecified [ X ] Pancytopenia due to Chemotherapy/antineoplastic drugs [ ] Pancytopenia due to other drug (please specify if known): [ ] Other diagnosis please specify [ ] Unable to determine Physician Signature: Date/Time: For continuity of documentation, please document condition throughout progress notes and discharge summary. Thank You. To be completed by CDI/Coding staff for physician review: Present Clinical Indicators - Signs / Symptoms / Labs Results and Location in Medical Record [ x ] WBC : 3.8L, 1.6L Laboratory [ x ] RBC 3.79L, 3.24L Laboratory [ x ] Hgb:: 12.5L, 10.47L Laboratory [ x ] Hct: 36.8L, 31.7L Laboratory [ x ] Fever H and P pg.1 [ x ] Leukopenia H and P pg.3 [ x ] Thrombocytopenia likely 2/2 chemoradiation H and P pg.3 [ x ] Anemia 2/2 chemoradiation H and P pg.3 [ x ] reports weakness ED Notes 02/24 [ x ] Platelet: 02/2415=106 02/2666=768 Labs 02/24 Present Risk Factors Results and Location in Medical Record [ x ] Sepsis H and P pg.3 [ x ] Rectal cancer H and P pg.3 [ x ] 69 years old H and P pg.3 [ x ] DM H and P pg.4 [ x ] HTN H and P pg.4 [ x ] Hx of basal cell carcinoma Consult pg.1 [ x ] On Chemotherapy H and P pg.1 [ x ] Smoker ED Notes 02/24 Present Treatments Results and Location in Medical Record [ x ] Oncology Consult Dr. Byrd 02/25 [ x ] GI Consult Dr. 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
== END 2020-02-28 15:45 | disposition home or self-care (01) | DRG 871 ==
LOC: ERS 14:24 → ONC 17:22 → UNDOADMIN 17:22 → ONC 17:44 → UNDOADMIN 17:44 → ONC 19:39
PROVIDERS: ADMIT Student in an Organized Health Care Education/Training Program; ATTEND Student in an Organized Health Care Education/Training Program
DX: A41.9 Sepsis, unspecified organism (principal); D61.810 Antineoplastic chemotherapy induced pancytopenia; K50.00 Crohn's disease of small intestine without complications; E87.1 Hypo-osmolality and hyponatremia; N17.9 Acute kidney failure, unspecified; C21.0 Malignant neoplasm of anus, unspecified; Z20.828 Contact with and (suspected) exposure to other viral communicable diseases; T45.1X5A Adverse effect of antineoplastic and immunosuppressive drugs, initial encounter; E11.22 Type 2 diabetes mellitus with diabetic chronic kidney disease; I12.9 Hypertensive chronic kidney disease with stage 1 through stage 4 chronic kidney disease, or unspecified chronic kidney disease; N28.1 Cyst of kidney, acquired; G47.00 Insomnia, unspecified; J30.2 Other seasonal allergic rhinitis; E11.42 Type 2 diabetes mellitus with diabetic polyneuropathy; K21.9 Gastro-esophageal reflux disease without esophagitis; E78.00 Pure hypercholesterolemia, unspecified; N18.2 Chronic kidney disease, stage 2 (mild); F17.210 Nicotine dependence, cigarettes, uncomplicated; Z90.49 Acquired absence of other specified parts of digestive tract; Z79.82 Long term (current) use of aspirin; Z79.4 Long term (current) use of insulin; Z79.899 Other long term (current) drug therapy; Z88.8 Allergy status to other drugs, medicaments and biological substances
CPT/HCPCS: 36415; 36416; 71045; 74177; 77386; 80048; 80053; 81003; 81015; 83605; 85025; 87040; 87045; 87046; 87086; 87324; 87427; 87449; 87635; 87804; 96361; 96365; J0692; J1642; J1650; J2543; J3490; Q0163; Q9967; U0003

== ENCOUNTER 2023-01-24 10:12 | Outpatient (CLI) | payer OTHER, MEDICARE | END 2023-01-24 10:13 | disposition home or self-care (01) | LOC: RAD 10:12 | PROVIDERS: ATTEND Family Medicine | DX: R06.3 Periodic breathing (principal); R05.3 Chronic cough | CPT/HCPCS: 71046 ==

== ENCOUNTER 2023-01-26 12:17 | Outpatient (CLI) | payer OTHER, MEDICARE | END 2023-01-26 12:18 | disposition home or self-care (01) | LOC: CT 12:17 | PROVIDERS: ATTEND Family Medicine | DX: R91.8 Other nonspecific abnormal finding of lung field (principal); R91.1 Solitary pulmonary nodule | CPT/HCPCS: 71260 ==

== ENCOUNTER 2023-04-03 13:56 | Outpatient (CLI) | payer OTHER, MEDICARE ==
[2023-04-03 15:53] LABS: #Basophils 0.1 10x3/uL (0.0-0.2); #Eosinphils 0.3 10x3/uL (0.0-0.5); #Monocytes 0.6 10x3/uL (0.0-1.1); #Neutrophils 5.7 10x3/uL (1.5-8.4); %Eosinophils 3.3 % (0.0-6.0); %Lymphocytes 17.6 % (18.0-47.0); %Monocytes 7.6 % (0.0-10.0); %Neutrophils 70.1 % (40.0-75.0); Hemoglobin 13.6 g/dL (13.5-17.5); Mean Corpuscular HGB CONC 31.6 g/dL (32.0-36.0); Mean Corpuscular Volume 94.9 fl (81.2-95.1); Mean Platelet Volume 12.6 fl (7.4-10.4); Platelet Count 205 10x3/uL (150-450); RBC Distribution Width 14.6 % (11.5-14.5); Red Blood Cell (RBC) Count 4.53 10x6/uL (4.32-5.72); White Blood Cell (WBC) Count 8.2 10x3/uL (3.5-10.5)
[2023-04-03 16:07] LABS: Anion Gap 15 mmol/L (10-20); BUN (Urea Nitrogen) 20 mg/dL (8.4-25.7); Calc. Creatinine Clearance 0 mL/min (70-130); Calcium 10.2 mg/dL (7.8-10.44); Carbon Dioxide 23 mmol/L (23-31); Chloride 111 mmol/L (98-107); Estimated GFR 46; Glucose 102 mg/dL (83-110); Potassium 4.8 mmol/L (3.5-5.1); Sodium 144 mmol/L (136-145)
== END 2023-04-03 13:57 | disposition home or self-care (01) ==
LOC: LABBT 13:56
PROVIDERS: ATTEND Specialist
DX: Z01.818 Encounter for other preprocedural examination (principal); C21.0 Malignant neoplasm of anus, unspecified
CPT/HCPCS: 71046; 80048; 85025; 93005; 93010

== ENCOUNTER 2023-04-06 05:55 | Day surgery (SDC) | payer OTHER, MEDICARE ==
[2023-04-03 14:56] VITALS: BMI 27.2
[2023-04-06] MEDS ORDERED: Ketorolac Tromethamine 30 MG/ML VIAL ONE (06:16)
[2023-04-06] MEDS ORDERED: Acetaminophen 500 MG TAB ONE (06:17)
[2023-04-06] MEDS ORDERED: Sodium Chloride 0.9% 100 ML ONE (06:17)
[2023-04-06] MEDS ORDERED: CEFAZOLIN 2 GM VIAL ONE (06:17)
[2023-04-06] MEDS ORDERED: Lidocaine 1% MPF 2 ML VIAL ONE (06:17)
[2023-04-06] MEDS ORDERED: Dexmedetomidine 200 MCG/2 ML VIAL ONE (06:45)
[2023-04-06] MEDS ORDERED: fentaNYL PF 100 MCG/2 ML SYRINGE ONE (06:46)
[2023-04-06] MEDS ORDERED: Bupivacaine 0.25% HCL 30 ML VIAL ONE (06:47)
[2023-04-06] MEDS ORDERED: EPINEPHrine 1 MG/ML VIAL ONE (06:47)
[2023-04-06] MEDS ORDERED: Dexamethasone 20 MG/5 ML VIAL ONE (07:33)
[2023-04-06] MEDS ORDERED: PHENYLEPHRINE-NS 100 MCG/ML 10 ML SYRINGE ONE ×2 (07:33→08:19)
[2023-04-06] MEDS ORDERED: PROPOFOL 200 MG/20 ML VIAL ONE (07:33)
[2023-04-06] MEDS ORDERED: Lidocaine 1% PF 5 ML VIAL ONE (07:33)
[2023-04-06] MEDS ORDERED: Ondansetron PF 4 MG/2 ML Vial ONE (07:33)
== END 2023-04-06 09:26 | disposition home or self-care (01) ==
LOC: SDC 05:55
PROVIDERS: ATTEND Specialist
PROC: 0DBP0ZX Excision of Rectum, Open Approach, Diagnostic (ICD-10-PCS; principal; 2023-04-06)
DX: C21.0 Malignant neoplasm of anus, unspecified (principal); E11.9 Type 2 diabetes mellitus without complications; E78.00 Pure hypercholesterolemia, unspecified; K21.9 Gastro-esophageal reflux disease without esophagitis; N40.0 Benign prostatic hyperplasia without lower urinary tract symptoms; F17.210 Nicotine dependence, cigarettes, uncomplicated; Z88.5 Allergy status to narcotic agent; Z90.49 Acquired absence of other specified parts of digestive tract; Z79.84 Long term (current) use of oral hypoglycemic drugs; Z79.4 Long term (current) use of insulin; Z79.899 Other long term (current) drug therapy
CPT/HCPCS: 36416; 88305; J0171; J1100; J1885; J2405; J2704; J3490; S0020

== ENCOUNTER 2023-07-24 08:07 | Outpatient (CLI) | payer OTHER, MEDICARE | END 2023-07-24 08:08 | disposition home or self-care (01) | LOC: SCSMRI 08:07 | PROVIDERS: ATTEND Physician Assistant Medical | DX: C44.520 Squamous cell carcinoma of anal skin (principal); K76.9 Liver disease, unspecified; K59.00 Constipation, unspecified; R00.0 Tachycardia, unspecified; R91.8 Other nonspecific abnormal finding of lung field | CPT/HCPCS: 74183 ==

== ENCOUNTER 2024-09-18 08:13 | Outpatient (CLI) | payer OTHER | END 2024-09-18 08:14 | disposition home or self-care (01) | LOC: BICCT 08:13 | PROVIDERS: ATTEND Family Medicine | DX: Z12.2 Encounter for screening for malignant neoplasm of respiratory organs (principal); F17.210 Nicotine dependence, cigarettes, uncomplicated | CPT/HCPCS: 71271 ==

== ENCOUNTER 2025-01-21 11:00 | Outpatient (CLI) | payer OTHER | END 2025-01-21 11:01 | LOC: PET 11:00 | PROVIDERS: ATTEND Internal Medicine Hematology & Oncology | DX: C34.11 Malignant neoplasm of upper lobe, right bronchus or lung (principal); C21.1 Malignant neoplasm of anal canal; F17.210 Nicotine dependence, cigarettes, uncomplicated; R91.8 Other nonspecific abnormal finding of lung field | CPT/HCPCS: 78815; A9552 ==

== ENCOUNTER 2025-03-09 08:15 | Outpatient (CLI) | payer OTHER | END 2025-03-09 08:16 | disposition home or self-care (01) | LOC: MRI 08:15 | PROVIDERS: ATTEND Radiology Radiation Oncology | DX: C34.90 Malignant neoplasm of unspecified part of unspecified bronchus or lung (principal); C79.31 Secondary malignant neoplasm of brain | CPT/HCPCS: 70553; 76376 ==

== ENCOUNTER 2025-04-02 14:20 | Outpatient (CLI) | payer OTHER ==
[~2025-04-02 14:20] MED LIST changes: +Iopamidol 370 76% 100 ML VIAL ONE; -Iopamidol 370 76% 50 ML VIAL FS ONE; -Iopamidol-370 76% 500 ML 1 ML ONE
== END 2025-04-02 14:21 | disposition home or self-care (01) ==
LOC: CT 14:20
PROVIDERS: ATTEND Internal Medicine Cardiovascular Disease
DX: I70.202 Unspecified atherosclerosis of native arteries of extremities, left leg (principal); K57.30 Diverticulosis of large intestine without perforation or abscess without bleeding; I70.0 Atherosclerosis of aorta; I70.8 Atherosclerosis of other arteries
CPT/HCPCS: 75635

== ENCOUNTER 2025-04-17 09:30 | Outpatient (CLI) | payer OTHER | END 2025-04-17 09:31 | disposition home or self-care (01) | LOC: PET 09:30 | PROVIDERS: ATTEND Internal Medicine Hematology & Oncology | DX: C34.11 Malignant neoplasm of upper lobe, right bronchus or lung (principal); C21.1 Malignant neoplasm of anal canal; F17.210 Nicotine dependence, cigarettes, uncomplicated; R91.1 Solitary pulmonary nodule | CPT/HCPCS: 78815; A9552 ==